=== PATIENT | female | born 1965 | race Caucasian/White ===

== ENCOUNTER 2021-09-11 00:36 | Inpatient (IN) | payer BC, OTHER ==
[~2021-09-11] VITALS: Ht 160 cm; Wt 42.3 kg
[2021-09-11] MEDS ORDERED: NF-ACI30T PO (01:00)
[2021-09-11] MEDS ORDERED: ALPR0.25 PO (01:00)
[2021-09-11] MEDS ORDERED: PANTOPRAZOLE 40 MG (PROTONIX) VIAL IV ONE (01:15)
[2021-09-11] MEDS ORDERED: ONDANSETRON 4 MG/2 ML (SDV) Z0FRAN IVP ONE (01:15)
[2021-09-11] MEDS ORDERED: fentaNYL INJ 100 MCG/2 ML AMP IVP ONE ×3 (01:15→04:30)
[2021-09-11] MEDS ORDERED: FAMOTIDINE 20MG/2ML IV (PEPCID) IVP ONE (01:15)
[2021-09-11 01:43] LABS: OCCULT BLOOD,GASTRIC FLUID POSITIVE (NEGATIVE)
[2021-09-11 01:44] LABS: BASOPHILS # (AUTO) 0.1 10^3/uL (0.0-0.1); BASOPHILS % (AUTO) 0 % (0-10); HEMATOCRIT 42 % (35-52); HEMOGLOBIN 13.5 g/dL (11.5-16.0); LYMPHOCYTES % (AUTO) 4 % (12-44); MEAN CORPUSCULAR HEMOGLOBIN 30 pg (25-34); MEAN CORPUSCULAR HGB CONC 33 g/dL (32-36); MEAN CORPUSCULAR VOLUME 92 fL (80-99); MEAN PLATELET VOLUME 11.2 fL (9.0-12.2); MONOCYTES % (AUTO) 6 % (0-12); PLATELET COUNT 344 10^3/uL (130-400); WHITE BLOOD COUNT 28.6 10^3/uL (4.3-11.0)
[2021-09-11 01:56] LABS: INR 0.9 (0.8-1.4); PROTHROMBIN TIME PATIENT 12.6 SEC (12.2-14.7)
[2021-09-11 01:58] LABS: ALBUMIN 4.6 GM/DL (3.2-4.5); CHLORIDE 103 MMOL/L (98-107); POTASSIUM 3.1 MMOL/L (3.6-5.0); SODIUM 144 MMOL/L (135-145)
[2021-09-11 02:00] LABS: CALCIUM 9.9 MG/DL (8.5-10.1)
[2021-09-11 02:01] LABS: GLUCOSE 192 MG/DL (70-105); TOTAL PROTEIN 7.7 GM/DL (6.4-8.2)
[2021-09-11 02:02] LABS: BILIRUBIN,TOTAL 0.4 MG/DL (0.1-1.0); CARBON DIOXIDE 24 MMOL/L (21-32)
[2021-09-11 02:04] LABS: ALKALINE PHOSPHATASE 100 U/L (40-136); CREATININE SERUM 0.79 MG/DL (0.60-1.30); GFR ESTIMATED 88
[2021-09-11 02:05] LABS: BUN/CREATININE RATIO 35
[2021-09-11 02:07] LABS: ALANINE AMINOTRANSFERASE 16 U/L (0-55)
[2021-09-11 02:08] LABS: LIPASE 19 U/L (8-78)
[2021-09-11 02:13] LABS: EOSINOPHILS % (AUTO) 0 % (0-10); NEUTROPHILS % (AUTO) 89 % (42-75)
[2021-09-11 02:14] LABS: LYMPHOCYTES # (AUTO) 1.3 10^3/uL (1.0-4.0); MONOCYTES # (AUTO) 1.6 10^3/uL (0.0-1.0); NEUTROPHILS # (AUTO) 25.3 10^3/uL (1.8-7.8)
[2021-09-11 02:15] LABS: ATYPICAL LYMPHOCYTES 5 %; BAND NEUTROPHILS 0 %; BASOPHILS % (MANUAL) 0 %; EOSINOPHILS % (MANUAL) 0 %; LYMPHOCYTES % (MANUAL) 5 %; MONOCYTES % (MANUAL) 3 %; NEUTROPHILS % (MANUAL) 87 %; POLYCHROMASIA SLIGHT
[2021-09-11 02:16] LABS: TOXIC GRANULATION/VACUOLAZATIO 1+
[2021-09-11 02:33] LABS: CLARITY,URINE CLEAR; COLOR,URINE YELLOW; GLUCOSE, URINE (UA) NEGATIVE (NEGATIVE); KETONES,URINE 1+ (NEGATIVE); LEUKOCYTE ESTERASE ,URINE NEGATIVE (NEGATIVE); NITRITE,URINE NEGATIVE (NEGATIVE); PROTEIN,URINE 1+ (NEGATIVE)
[2021-09-11 02:40] LABS: BILIRUBIN,URINE 1+ (NEGATIVE)
[2021-09-11 02:41] LABS: BACTERIA,URINE TRACE /HPF
[2021-09-11] MEDS: LACTATED RINGERS 1,000 ML IV SCH ×4 (02:59→23:00)
[2021-09-11] MEDS ORDERED: PROMETHAZINE INJ 25 MG/ML (PHENERGAN) AMP IVP ONE (03:00)
[2021-09-11] MEDS ORDERED: CATHETER FLUSH 10 ML SYR IV PRN (03:30)
[2021-09-11] MEDS ORDERED: HOLD METFORMIN - RECEIVED CONTRAST 20 ML VIAL IV SCH (03:30)
[2021-09-11] MEDS ORDERED: IOHEXOL 350 MG/ML 100 ML (OMNIPAQUE 350) VIAL IV ONE (03:30)
[2021-09-11] MEDS ORDERED: NS 100 ML (IVPB) BAG IV ONE (03:30)
[2021-09-11] MEDS ORDERED: PIPERACILLIN SODIUM/TAZOBACTAM 4.5 GM in NS (IVPB) 100 ML IV ONE (04:15)
--- NOTE | 2021-09-11 04:25 | ED Abdominal Pain ---
General Chief Complaint: Abdominal/GI Problems Stated Complaint: ABD PAIN Nursing Triage Note: c/o abdominal pain x1 day worse since 1800. vomitted x1 Source of Information: Patient Exam Limitations: No Limitations History of Present Illness Date Seen by Provider: Sep 11, 2021 Time Seen by Provider: 11:30 Initial Comments This 56-year-old woman presents to the emergency room with primary complaint of upper abdominal pain and hematemesis. She reports worsening problems with acid reflux over the past 2 months. Then over the past 2 days she had intensifying pain and started vomiting. She vomited at least 500 mL of bloody emesis while in the ER. She reports a prior history of perforated gastric ulcer requiring emergent surgery. She takes AcipHex daily to try to prevent this problem. She denies any fevers, cough, or shortness of breath. She denies any history of hepatitis or esophageal varices. She denies any alcohol consumption. Allergies and Home Medications Allergies Coded Allergies: Influenza Virus Vaccines (Verified Allergy, Unknown, 09/11/21) Patient Home Medication List Home Medication List Reviewed: Yes Alprazolam (Xanax) 0.25 Mg Tablet, Unknown Dose PO, (Reported) Entered as Reported by: DEREK PEREZ on 09/11/2199 Last Action: New Order Rabeprazole Sodium (Aciphex) 20 Mg Tablet.dr, Unknown Dose PO, (Reported) Entered as Reported by: DEREK PEREZ on 09/11/2199 Last Action: New Order Review of Systems Review of Systems Constitutional: no symptoms reported EENTM: No Symptoms Reported Respiratory: No Symptoms Reported Cardiovascular: No Symptoms Reported Gastrointestinal: See HPI Genitourinary: No Symptoms Reported Musculoskeletal: no symptoms reported Skin: no symptoms reported Psychiatric/Neurological: No Symptoms Reported Endocrine: No Symptoms Reported Past [id number]-[id number]-[id number] Hx Patient Social History Tobacco Use?: Yes Tobacco type used: Cigarettes Use of E-Cig and/or Vaping dev: No Substance use?: No Alcohol Use?: No Pt feels they are or have been: No Immunizations Up To Date Influenza Vaccine Up-to-Date: No; Not Current First/Initial COVID19 Vaccinat: 10/30 COVID19 Vaccine Life Specialist: j&j Past Medical History Surgery/Hospitalization HX: gastric ulcer, cholecystectomy, lumpectomy, anxiety, gerd, Surgeries: Yes Abdominal (Emergent repair of perforated gastric ulcer), Breast (Benign lumpectomy left breast), Gallbladder Respiratory: No Cardiac: No Neurological: No : No Reproductive Disorders: No Genitourinary: No Gastrointestinal: Yes Ulcer (Rupture) Musculoskeletal: No Endocrine: No HEENT: No Cancer: No Did You Recieve Any Treatments: No Psychosocial: No Integumentary: No Physical Exam Vital Signs Vital Signs - First Documented 09/11/21 00:52 Temp 36.4 Pulse 104 Resp 20 B/P (MAP) 144/122 (129) Pulse Ox 97 O2 Delivery Room Air Capillary Refill : Less Than 3 Seconds Height/Weight/BMI Height: '" Weight: lbs. oz. 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, no motor/sensory deficits, alert, oriented x 3, other (Mildly anxious) Skin: normal color, warm/dry Focused Exam Lactate Level 09/11/21 01:52: Lactic Acid Level 1.46 Lactic Acid Level Laboratory Tests Test 09/11/21 01:52 Lactic Acid Level 1.46 MMOL/L (0.50-2.00) Progress/Results/Core Measures Results/Orders Lab Results Laboratory Tests Test 09/11/21 01:20 09/11/21 01:26 09/11/21 01:52 09/11/21 02:25 Range/Units Gastric Fluid Occult Blood POSITIVE H NEGATIVE White Blood Count 28.6 H 4.3-11.0 10^3/uL Red Blood Count 4.51 3.80-5.11 10^6/uL Hemoglobin 13.5 11.5-16.0 g/dL Hematocrit 42 35-52 % Mean Corpuscular Volume 92 80-99 fL Mean Corpuscular Hemoglobin 30 25-34 pg Mean Corpuscular Hemoglobin Concent 33 32-36 g/dL Red Cell Distribution Width 13.5 10.0-14.5 % Platelet Count 344 130-400 10^3/uL Mean Platelet Volume 11.2 9.0-12.2 fL Immature Granulocyte % (Auto) 1 % Neutrophils (%) (Auto) 89 H 42-75 % Lymphocytes (%) (Auto) 4 L 12-44 % Monocytes (%) (Auto) 6 0-12 % Eosinophils (%) (Auto) 0 0-10 % Basophils (%) (Auto) 0 0-10 % Neutrophils # (Auto) 25.3 H 1.8-7.8 10^3/uL Lymphocytes # (Auto) 1.3 1.0-4.0 10^3/uL Monocytes # (Auto) 1.6 H 0.0-1.0 10^3/uL Eosinophils # (Auto) 0.0 0.0-0.3 10^3/uL Basophils # (Auto) 0.1 0.0-0.1 10^3/uL Immature Granulocyte # (Auto) 0.2 H 0.0-0.1 10^3/uL Neutrophils % (Manual) 87 % Lymphocytes % (Manual) 5 % Monocytes % (Manual) 3 % Eosinophils % (Manual) 0 % Basophils % (Manual) 0 % Band Neutrophils 0 % Atypical Lymphocytes 5 % Toxic Granulation 1+ Polychromasia SLIGHT Prothrombin Time 12.6 12.2-14.7 SEC INR Comment 0.9 0.8-1.4 Activated Partial Thromboplast Time 30 24-35 SEC Sodium Level 144 135-145 MMOL/L Potassium Level 3.1 L 3.6-5.0 MMOL/L Chloride Level 103 98-107 MMOL/L Carbon Dioxide Level 24 21-32 MMOL/L Anion Gap 17 H 5-14 MMOL/L Blood Urea Nitrogen 28 H 7-18 MG/DL Creatinine 0.79 0.60-1.30 MG/DL Estimat Glomerular Filtration Rate 88 BUN/Creatinine Ratio 35 Glucose Level 192 H 70-105 MG/DL Calcium Level 9.9 8.5-10.1 MG/DL Corrected Calcium 8.5-10.1 MG/DL Total Bilirubin 0.4 0.1-1.0 MG/DL Aspartate Amino Transf (AST/SGOT) 19 5-34 U/L Alanine Aminotransferase (ALT/SGPT) 16 0-55 U/L Alkaline Phosphatase 100 40-136 U/L Total Protein 7.7 6.4-8.2 GM/DL Albumin 4.6 H 3.2-4.5 GM/DL Lipase 19 8-78 U/L Lactic Acid Level 1.46 0.50-2.00 MMOL/L Urine Color YELLOW Urine Clarity CLEAR Urine pH 6.0 5-9 Urine Specific Ber[place] >=1.030 1.016-1.022 Urine Protein 1+ H NEGATIVE Urine Glucose (UA) NEGATIVE NEGATIVE Urine Ketones 1+ H NEGATIVE Urine Nitrite NEGATIVE NEGATIVE Urine Bilirubin 1+ H NEGATIVE Urine Urobilinogen 0.2 < = 1.0 MG/DL Urine Leukocyte Esterase NEGATIVE NEGATIVE Urine RBC (Auto) 1+ H NEGATIVE Urine RBC 2-5 H /HPF Urine WBC 2-5 /HPF Urine Squamous Epithelial Cells 2-5 /HPF Urine Crystals NONE /LPF Urine Bacteria TRACE /HPF Urine Casts NONE /LPF Urine Mucus NEGATIVE /LPF Urine Culture Indicated NO My Orders Orders - HIMA GOMES MD Cbc With Automated Diff (09/11/21 01:13) Comprehensive Metabolic Panel (09/11/21 01:13) Lipase (09/11/21 01:13) Protime With Inr (09/11/21 01:13) Partial Thromboplastin Time (09/11/21 01:13) Ua Culture If Indicated (09/11/21 01:13) Ondansetron Injection (Zofran Injectio (09/11/21 01:15) Pantoprazole Injection (Protonix Injecti (09/11/21 01:15) Famotidine Injection (Pepcid Injection) (09/11/21 01:15) Fentanyl Inj (Sublimaze Injection) (09/11/21 01:15) Red Cells Leukocytes Reduced (09/11/21 01:15) Type And Screen (09/11/21 01:15) Occult Blood,Gastric Fluid (09/11/21 01:19) Manual Differential (09/11/21 01:26) Fentanyl Inj (Sublimaze Injection) (09/11/21 02:45) Lactated Ringers (Lr 1000 Ml Iv Solution (09/11/21 02:45) Ct Abdomen/Pelvis W (09/11/21 02:50) Promethazine Injection (Phenergan Injec (09/11/21 03:00) Iohexol Injection (Omnipaque 350 Mg/Ml 1 (09/11/21 03:30) Received Contrast (Hold Metformin- Contr (09/11/21 03:30) Sodium Chloride Flush (Catheter Flush Sy (09/11/21 03:30) Ns (Ivpb) (Sodium Chloride 0.9% Ivpb Bag (09/11/21 03:30) Blood Culture (09/11/21 04:12) Chest 1 View, Ap/Pa Only (09/11/21 04:12) Vital Signs Adult Sepsis Patie Q15M (09/11/21 04:12) Remove Rings In Anticipation O (09/11/21 04:12) Lactic Acid Analyzer (09/11/21 04:12) Piperacillin Sodium/Tazobactam (Zosyn Vi (09/11/21 04:15) Ng Tube Insert & Assessment (09/11/21 04:12) Medications Given in ED Current Medications Medications Dose Ordered Sig/Keyon Route Start Time Stop Time Status Last Admin Dose Admin Famotidine 20 mg ONCE ONCE IVP 09/11/21 01:15 09/11/21 01:16 DC 09/11/21 01:32 20 MG Fentanyl Citrate 50 mcg ONCE ONCE IVP 09/11/21 01:15 09/11/21 01:16 DC 09/11/21 01:33 50 MCG Fentanyl Citrate 50 mcg ONCE ONCE IVP 09/11/21 02:45 09/11/21 02:46 DC 09/11/21 02:59 50 MCG Iohexol 100 ml ONCE ONCE IV 09/11/21 03:30 09/11/21 03:31 DC 09/11/21 03:36 70 ML Ondansetron HCl 8 mg ONCE ONCE IVP 09/11/21 01:15 09/11/21 01:16 DC 09/11/21 01:32 8 MG Pantoprazole 80 mg ONCE ONCE IV 09/11/21 01:15 09/11/21 01:16 DC 09/11/21 01:32 80 MG Piperacillin Sod/ Tazobactam Sod 4.5 gm/Sodium Chloride 100 ml @ 200 mls/hr ONCE ONCE IV 09/11/21 04:15 09/11/21 04:44 DC 09/11/21 04:29 200 MLS/HR Promethazine HCl 12.5 mg ONCE ONCE IVP 09/11/21 03:00 09/11/21 03:01 DC 09/11/21 02:58 12.5 MG Sodium Chloride 10 ml NEEDED PRN IV 09/11/21 03:30 09/11/21 06:47 DC 09/11/21 03:36 10 ML Sodium Chloride 100 ml ONCE ONCE IV 09/11/21 03:30 09/11/21 03:31 DC 09/11/21 03:36 80 ML Vital Signs/I&O 09/11/21 00:52 Temp 36.4 Pulse 104 Resp 20 B/P (MAP) 144/122 (129) Pulse Ox 97 O2 Delivery Room Air Blood Pressure Mean: 129 Progress Progress Note : Progress Note Patient was treated with high-dose PPI, Zofran, and Phenergan. Opioids were used for pain control. Gastric Hemoccult confirmed blood in the emesis. CT scan was obtained and revealed free air near the distal stomach or early duodenum suggesting perforation of a viscus. No abscess was identified. Diagnostic Imaging Diagonstic Imaging: CT Plain Films/CT/US/NM/MRI: abdomen, pelvis Comments NAME: LACEY ZAIDI [facility] REC#: [id number] PT STATUS: ADM IN : 1965 PHYSICIAN: HIMA GOMES MD ADMIT DATE: 09/11/21 Draft Date of Exam:09/11/21 CT ABDOMEN/PELVIS W PROCEDURE: CT abdomen and pelvis with contrast. TECHNIQUE: Multiple contiguous axial images were obtained through the abdomen and pelvis after administration of intravenous contrast. Auto Exposure Controls were utilized during the CT exam to meet ALARA standards for radiation dose reduction. All CT scans use one or more of the following dose optimizing techniques: automated exposure control, MA and/or KvP adjustment based on patient size and exam type or iterative reconstruction. INDICATION: 56-year-old female presents with abdominal pain, hematemesis. There is a previous history of cholecystectomy as well as repair of gastric ulcer. COMPARISONS: None FINDINGS: Lung bases show some minimal subpleural dependent atelectatic infiltrates but no consolidations. There is no effusion or pneumothorax. Cardiac contour is normal. Liver shows uniform attenuation. There is no intraparenchymal mass. There is intrahepatic ductal dilatation as well as dilated common duct including the pancreatic portion of the common duct. The duct, however, appears to be patent to the ampulla. An ampullary stenosis or stricture versus small axillary mass cannot be excluded. Spleen and GE junction are normal. Stomach is moderately distended with food stuff. There is inflammatory process in the antrum and pylorus with some possible pneumatosis. A pyloric mass is also within differential. Duodenal sweep is grossly normal. Pancreas shows sharp margins. There is prominence of the pancreatic duct, once again possibly due to obstruction near the ampulla. Adrenals are normal. Kidneys appear normal in size, position, and contour. There is symmetrical perfusion and excretion of contrast. Both ureters are seen intermittently through their course and appear grossly unremarkable. Partially filled bladder is also normal. Nonopacified loops of small bowel are normal. Appendix is unremarkable. Large bowel contains some scattered diverticula. There is some minimal mucosal thickening near the cecum. Overall, the large bowel is mostly decompressed. There is no free air or free fluid. There is a small pocket of gas in the rectus sheath along the mid pelvis. Bone windows show degenerative changes in the lumbosacral spine with vacuum disc at L4-L5 and L5-S1. Visualized vasculature shows normal caliber of the aorta, iliac and femoral arteries. There is some nonaneurysmal calcifications. There is normal origin of the visceral arteries. IMPRESSION: 1. Gastric outlet obstruction secondary to mucosal thickening with possible antral mass. There is also mucosal thickening in the pylorus with possible pneumatosis versus a perforated ulcer. 2. There is marked intrahepatic ductal dilatation as well as dilatation of the pancreatic duct. This is felt to be due to obstruction near the ampulla. There is surgically absent gallbladder. 3. No evidence of obstructive uropathy or appendicitis. 4. Suspected distal esophagitis. Additional nonemergent findings as described above. Agree with [facility] report. Dictated on workstation # [id number] Dict: 09/11/21 0616 Trans: 09/11/21 0626 GHULAM [id number] Interpreted by: TERRA VALENCIA MD Departure Communication (Admissions) Time/Spoke to Admitting Phy: 02:45 Dr. Salvador Time/Spoke to Consulting Phy: 02:40 Dr. Layton Impression Primary Impression: Perforated ulcer Additional Impressions: Hematemesis Qualified Codes: K92.0 - Hematemesis Abdominal pain Qualified Codes: R10.10 - Upper abdominal pain, unspecified Disposition: ADMITTED INPATIENT Condition: Stable Admissions Decision to Admit Reason: Admit from ER (General) Decision to Admit/Date: Sep 11, 2021 Time/Decision to Admit Time: 02:45 Departure-Patient Inst. Referrals: EVELYN VO DO (PCP/Family) Primary Care Physician HIMA GOMES MD Sep 11, 2021 04:25
[2021-09-11] MEDS ORDERED: LORazepam INJ 2 MG/ML (ATIVAN) VIAL IVP ONE (04:30)
[2021-09-11 05:20] VITALS: BP 104/72
[2021-09-11] MEDS ORDERED: LACTATED RINGERS 1,000 ML IV SCH (05:30)
--- NOTE | 2021-09-11 05:56 | Diagnostic Imaging Report ---
INDICATION: NG tube placement. TECHNIQUE: Single view chest 5:16 AM. CORRELATION STUDY: None FINDINGS: The heart size, mediastinal configuration and pulmonary vascularity are within normal limits. The lungs are clear with no consolidating infiltrate. There is no significant effusion or pneumothorax. Gastric tube tip in the mid to lower left abdomen likely positioned within the mid to distal body of the stomach. Air-fluid level within the stomach. Contrast material within the genitourinary system. IMPRESSION: 1. Gastric tube tip likely in the mid to distal body of stomach. Dictated by: Dictated on workstation # [id number]
--- NOTE | 2021-09-11 06:27 | Diagnostic Imaging Report ---
PROCEDURE: CT abdomen and pelvis with contrast. TECHNIQUE: Multiple contiguous axial images were obtained through the abdomen and pelvis after administration of intravenous contrast. Auto Exposure Controls were utilized during the CT exam to meet ALARA standards for radiation dose reduction. All CT scans use one or more of the following dose optimizing techniques: automated exposure control, MA and/or KvP adjustment based on patient size and exam type or iterative reconstruction. INDICATION: 56-year-old female presents with abdominal pain, hematemesis. There is a previous history of cholecystectomy as well as repair of gastric ulcer. COMPARISONS: None FINDINGS: Lung bases show some minimal subpleural dependent atelectatic infiltrates but no consolidations. There is no effusion or pneumothorax. Cardiac contour is normal. Liver shows uniform attenuation. There is no intraparenchymal mass. There is intrahepatic ductal dilatation as well as dilated common duct including the pancreatic portion of the common duct. The duct, however, appears to be patent to the ampulla. An ampullary stenosis or stricture versus small axillary mass cannot be excluded. Spleen and GE junction are normal. Stomach is moderately distended with food stuff. There is inflammatory process in the antrum and pylorus with some possible pneumatosis. A pyloric mass is also within differential. Duodenal sweep is grossly normal. Pancreas shows sharp margins. There is prominence of the pancreatic duct, once again possibly due to obstruction near the ampulla. Adrenals are normal. Kidneys appear normal in size, position, and contour. There is symmetrical perfusion and excretion of contrast. Both ureters are seen intermittently through their course and appear grossly unremarkable. Partially filled bladder is also normal. Nonopacified loops of small bowel are normal. Appendix is unremarkable. Large bowel contains some scattered diverticula. There is some minimal mucosal thickening near the cecum. Overall, the large bowel is mostly decompressed. There is no free air or free fluid. There is a small pocket of gas in the rectus sheath along the mid pelvis. Bone windows show degenerative changes in the lumbosacral spine with vacuum disc at L4-L5 and L5-S1. Visualized vasculature shows normal caliber of the aorta, iliac and femoral arteries. There is some nonaneurysmal calcifications. There is normal origin of the visceral arteries. IMPRESSION: 1. Gastric outlet obstruction secondary to mucosal thickening with possible antral mass. There is also mucosal thickening in the pylorus with possible pneumatosis versus a perforated ulcer. 2. There is marked intrahepatic ductal dilatation as well as dilatation of the pancreatic duct. This is felt to be due to obstruction near the ampulla. There is surgically absent gallbladder. 3. No evidence of obstructive uropathy or appendicitis. 4. Suspected distal esophagitis. Additional nonemergent findings as described above. Agree with [facility] report. Dictated by: Dictated on workstation # [id number]
[2021-09-11] MEDS ORDERED: CATHETER FLUSH 10 ML SYR IVP PRN (07:00)
[2021-09-11 07:10] LABS: BASOPHILS % (AUTO) 0 % (0-10); HEMOGLOBIN 11.1 g/dL (11.5-16.0)
[2021-09-11 07:12] LABS: EOSINOPHILS # (AUTO) 1.8 10^3/uL (0.0-0.3); EOSINOPHILS % (AUTO) 9 % (0-10); HEMATOCRIT 35 % (35-52); LYMPHOCYTES # (AUTO) 0.9 10^3/uL (1.0-4.0); LYMPHOCYTES % (AUTO) 5 % (12-44); MEAN CORPUSCULAR HEMOGLOBIN 30 pg (25-34); MEAN CORPUSCULAR HGB CONC 32 g/dL (32-36); MEAN CORPUSCULAR VOLUME 93 fL (80-99); MEAN PLATELET VOLUME 11.5 fL (9.0-12.2); MONOCYTES % (AUTO) 5 % (0-12); NEUTROPHILS # (AUTO) 16.5 10^3/uL (1.8-7.8); NEUTROPHILS % (AUTO) 81 % (42-75); PLATELET COUNT 235 10^3/uL (130-400); WHITE BLOOD COUNT 20.4 10^3/uL (4.3-11.0)
[2021-09-11 07:45] LABS: ALBUMIN 3.6 GM/DL (3.2-4.5); BILIRUBIN,TOTAL 0.5 MG/DL (0.1-1.0); CALCIUM 8.7 MG/DL (8.5-10.1); CREATININE SERUM 0.7 MG/DL (0.60-1.30); POTASSIUM 3.2 MMOL/L (3.6-5.0)
[2021-09-11 08:04] VITALS: BP 121/59
[2021-09-11] MEDS: PANTOPRAZOLE 40 MG (PROTONIX) VIAL IV SCH ×2 (08:44→20:43)
[2021-09-11] MEDS: POTASSIUM CL 10MEQ/50ML IVPB 50 ML IV SCH ×4 (09:13→11:53)
[2021-09-11 11:44] VITALS: BP 120/61
--- NOTE | 2021-09-11 12:31 | History & Physical ---
GENE AGEE III MED STUDENT 09/11/21 1231: HPI History of Present Illness: Pt is a 56yo female w/ pmhx of GERD, gastric ulceration w/ hx of perforation requiring surgery about 10 years ago who presented to the ED on 09/10 w/ significant abdominal pain and hematemesis. Notes that symptoms started to develop 09/08 into 09/09. Rates the pain as 10/10, however is unable to describe the quality of pain. does note that it is the exact sensation she had previously when she had a perforated gastric ulcer. W/ the abdominal pain, endorses chills, subjective fever, SOB, CP (localized to epigastric area), and fatigue. 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 Had success w/ zantac in the past, however has not found any medication that has helped as much since this was discontinued. Source: patient Exam Limitations: no limitations Date seen by provider: Sep 11, 2021 Time Seen by Provider: 11:10 Attending Physician Sánchez Lux MD PCP Edmund Salvador V DO Consult Date of Admission Sep 11, 2021 at 04:16 Home Medications Home Medications Reviewed patient Home Medication Reconciliation performed by pharmacy medication reconciliations extractions technician and/or nursing. Patients Allergies have been reviewed. Allergies Coded Allergies: Influenza Virus Vaccines (Verified Allergy, Unknown, 09/11/21) BZO-[id number]-Gtcdtl Hx Patient Social History Smoking Status: Current Someday Smoker Recent Hopitalizations: No Alcohol Use?: No Tobacco type used: Cigarettes Have you traveled recently?: No Immunizations Up To Date Influenza Vaccine Up-to-Date: No; Not Current First/Initial COVID19 Vaccinat: 10/30 COVID19 Vaccine Glazing Superintendent: j&j Past Medical History GERD, gastric ulcer Family Medical History Significant Family History: No Pertinent Family Hx Review of Systems ([facility]) Constitutional: chills, diaphoresis, fever, malaise, weakness, weight loss EENTM: no symptoms reported Respiratory: short of breath; No wheezing Cardiovascular: chest pain (but localizes to epigastric area) Gastrointestinal: abdominal pain (epigastric ), hematemesis (describes dark brown vomitus that has been present for a while, not frequent occurance ), nausea, vomiting Genitourinary: no symptoms reported : No Musculoskeletal: no symptoms reported Skin: no symptoms reported Psychiatric/Neurological: No Symptoms Reported Reviewed Test Results Reviewed Test Results Lab 09/11/21 09/11/21 09/11/21 09/11/21 00:52 04:54 05:20 05:59 Temp 36.4 36.4 37.6 Pulse 104 92 85 Resp 20 18 18 B/P (MAP) 144/122 (129) 96/72 104/72 (83) Pulse Ox 97 99 96 O2 Delivery Room Air Room Air Room Air Room Air 09/11/21 09/11/21 09/11/21 08:00 08:04 11:44 Temp 37.4 37.8 Pulse 87 85 Resp 16 18 B/P (MAP) 121/59 (79) 120/61 (80) Pulse Ox 97 96 O2 Delivery Room Air Room Air Room Air Laboratory Tests Test 09/11/21 01:20 09/11/21 01:26 09/11/21 01:52 09/11/21 02:25 Range/Units Gastric Fluid Occult Blood POSITIVE H NEGATIVE White Blood Count 28.6 H 4.3-11.0 10^3/uL Red Blood Count 4.51 3.80-5.11 10^6/uL Hemoglobin 13.5 11.5-16.0 g/dL Hematocrit 42 35-52 % Mean Corpuscular Volume 92 80-99 fL Mean Corpuscular Hemoglobin 30 25-34 pg Mean Corpuscular Hemoglobin Concent 33 32-36 g/dL Red Cell Distribution Width 13.5 10.0-14.5 % Platelet Count 344 130-400 10^3/uL Mean Platelet Volume 11.2 9.0-12.2 fL Immature Granulocyte % (Auto) 1 % Neutrophils (%) (Auto) 89 H 42-75 % Lymphocytes (%) (Auto) 4 L 12-44 % Monocytes (%) (Auto) 6 0-12 % Eosinophils (%) (Auto) 0 0-10 % Basophils (%) (Auto) 0 0-10 % Neutrophils # (Auto) 25.3 H 1.8-7.8 10^3/uL Lymphocytes # (Auto) 1.3 1.0-4.0 10^3/uL Monocytes # (Auto) 1.6 H 0.0-1.0 10^3/uL Eosinophils # (Auto) 0.0 0.0-0.3 10^3/uL Basophils # (Auto) 0.1 0.0-0.1 10^3/uL Immature Granulocyte # (Auto) 0.2 H 0.0-0.1 10^3/uL Neutrophils % (Manual) 87 % Lymphocytes % (Manual) 5 % Monocytes % (Manual) 3 % Eosinophils % (Manual) 0 % Basophils % (Manual) 0 % Band Neutrophils 0 % Atypical Lymphocytes 5 % Toxic Granulation 1+ Polychromasia SLIGHT Prothrombin Time 12.6 12.2-14.7 SEC INR Comment 0.9 0.8-1.4 Activated Partial Thromboplast Time 30 24-35 SEC Sodium Level 144 135-145 MMOL/L Potassium Level 3.1 L 3.6-5.0 MMOL/L Chloride Level 103 98-107 MMOL/L Carbon Dioxide Level 24 21-32 MMOL/L Anion Gap 17 H 5-14 MMOL/L Blood Urea Nitrogen 28 H 7-18 MG/DL Creatinine 0.79 0.60-1.30 MG/DL Estimat Glomerular Filtration Rate 88 BUN/Creatinine Ratio 35 Glucose Level 192 H 70-105 MG/DL Calcium Level 9.9 8.5-10.1 MG/DL Corrected Calcium 8.5-10.1 MG/DL Total Bilirubin 0.4 0.1-1.0 MG/DL Aspartate Amino Transf (AST/SGOT) 19 5-34 U/L Alanine Aminotransferase (ALT/SGPT) 16 0-55 U/L Alkaline Phosphatase 100 40-136 U/L Total Protein 7.7 6.4-8.2 GM/DL Albumin 4.6 H 3.2-4.5 GM/DL Lipase 19 8-78 U/L Lactic Acid Level 1.46 0.50-2.00 MMOL/L Urine Color YELLOW Urine Clarity CLEAR Urine pH 6.0 5-9 Urine Specific [place] >=1.030 1.016-1.022 Urine Protein 1+ H NEGATIVE Urine Glucose (UA) NEGATIVE NEGATIVE Urine Ketones 1+ H NEGATIVE Urine Nitrite NEGATIVE NEGATIVE Urine Bilirubin 1+ H NEGATIVE Urine Urobilinogen 0.2 < = 1.0 MG/DL Urine Leukocyte Esterase NEGATIVE NEGATIVE Urine RBC (Auto) 1+ H NEGATIVE Urine RBC 2-5 H /HPF Urine WBC 2-5 /HPF Urine Squamous Epithelial Cells 2-5 /HPF Urine Crystals NONE /LPF Urine Bacteria TRACE /HPF Urine Casts NONE /LPF Urine Mucus NEGATIVE /LPF Urine Culture Indicated NO Test 09/11/21 06:50 09/11/21 07:00 Range/Units White Blood Count 20.4 H 4.3-11.0 10^3/uL Red Blood Count 3.71 L 3.80-5.11 10^6/uL Hemoglobin 11.1 L 11.5-16.0 g/dL Hematocrit 35 35-52 % Mean Corpuscular Volume 93 80-99 fL Mean Corpuscular Hemoglobin 30 25-34 pg Mean Corpuscular Hemoglobin Concent 32 32-36 g/dL Red Cell Distribution Width 13.6 10.0-14.5 % Platelet Count 235 130-400 10^3/uL Mean Platelet Volume 11.5 9.0-12.2 fL Immature Granulocyte % (Auto) 1 % Neutrophils (%) (Auto) 81 H 42-75 % Lymphocytes (%) (Auto) 5 L 12-44 % Monocytes (%) (Auto) 5 0-12 % Eosinophils (%) (Auto) 9 0-10 % Basophils (%) (Auto) 0 0-10 % Neutrophils # (Auto) 16.5 H 1.8-7.8 10^3/uL Lymphocytes # (Auto) 0.9 L 1.0-4.0 10^3/uL Monocytes # (Auto) 1.0 0.0-1.0 10^3/uL Eosinophils # (Auto) 1.8 H 0.0-0.3 10^3/uL Basophils # (Auto) 0.0 0.0-0.1 10^3/uL Immature Granulocyte # (Auto) 0.2 H 0.0-0.1 10^3/uL Sodium Level 143 135-145 MMOL/L Potassium Level 3.2 L 3.6-5.0 MMOL/L Chloride Level 105 98-107 MMOL/L Carbon Dioxide Level 25 21-32 MMOL/L Anion Gap 13 5-14 MMOL/L Blood Urea Nitrogen 23 H 7-18 MG/DL Creatinine 0.70 0.60-1.30 MG/DL Estimat Glomerular Filtration Rate 101 BUN/Creatinine Ratio 33 Glucose Level 124 H 70-105 MG/DL Calcium Level 8.7 8.5-10.1 MG/DL Corrected Calcium 9.0 8.5-10.1 MG/DL Total Bilirubin 0.5 0.1-1.0 MG/DL Aspartate Amino Transf (AST/SGOT) 16 5-34 U/L Alanine Aminotransferase (ALT/SGPT) 10 0-55 U/L Alkaline Phosphatase 83 40-136 U/L Total Protein 6.0 L 6.4-8.2 GM/DL Albumin 3.6 3.2-4.5 GM/DL Radiology CT ABDOMEN/PELVIS W PROCEDURE: CT abdomen and pelvis with contrast. TECHNIQUE: Multiple contiguous axial images were obtained through the abdomen and pelvis after administration of intravenous contrast. Auto Exposure Controls were utilized during the CT exam to meet ALARA standards for radiation dose reduction. All CT scans use one or more of the following dose optimizing techniques: automated exposure control, MA and/or KvP adjustment based on patient size and exam type or iterative reconstruction. INDICATION: 56-year-old female presents with abdominal pain, hematemesis. There is a previous history of cholecystectomy as well as repair of gastric ulcer. COMPARISONS: None FINDINGS: Lung bases show some minimal subpleural dependent atelectatic infiltrates but no consolidations. There is no effusion or pneumothorax. Cardiac contour is normal. Liver shows uniform attenuation. There is no intraparenchymal mass. There is intrahepatic ductal dilatation as well as dilated common duct including the pancreatic portion of the common duct. The duct, however, appears to be patent to the ampulla. An ampullary stenosis or stricture versus small axillary mass cannot be excluded. Spleen and GE junction are normal. Stomach is moderately distended with food stuff. There is inflammatory process in the antrum and pylorus with some possible pneumatosis. A pyloric mass is also within differential. Duodenal sweep is grossly normal. Pancreas shows sharp margins. There is prominence of the pancreatic duct, once again possibly due to obstruction near the ampulla. Adrenals are normal. Kidneys appear normal in size, position, and contour. There is symmetrical perfusion and excretion of contrast. Both ureters are seen intermittently through their course and appear grossly unremarkable. Partially filled bladder is also normal. Nonopacified loops of small bowel are normal. Appendix is unremarkable. Large bowel contains some scattered diverticula. There is some minimal mucosal thickening near the cecum. Overall, the large bowel is mostly decompressed. There is no free air or free fluid. There is a small pocket of gas in the rectus sheath along the mid pelvis. Bone windows show degenerative changes in the lumbosacral spine with vacuum disc at L4-L5 and L5-S1. Visualized vasculature shows normal caliber of the aorta, iliac and femoral arteries. There is some nonaneurysmal calcifications. There is normal origin of the visceral arteries. IMPRESSION: 1. Gastric outlet obstruction secondary to mucosal thickening with possible antral mass. There is also mucosal thickening in the pylorus with possible pneumatosis versus a perforated ulcer. 2. There is marked intrahepatic ductal dilatation as well as dilatation of the pancreatic duct. This is felt to be due to obstruction near the ampulla. There is surgically absent gallbladder. 3. No evidence of obstructive uropathy or appendicitis. 4. Suspected distal esophagitis. Additional nonemergent findings as described above. Physical Exam-([facility]) Physical Exam Vital Signs VS - Last 72 Hours, by Label 09/11/21 09/11/21 09/11/21 09/11/21 00:52 04:54 05:20 05:59 Temp 36.4 36.4 37.6 Pulse 104 92 85 Resp 20 18 18 B/P (MAP) 144/122 (129) 96/72 104/72 (83) Pulse Ox 97 99 96 O2 Delivery Room Air Room Air Room Air Room Air 09/11/21 09/11/21 09/11/21 08:00 08:04 11:44 Temp 37.4 37.8 Pulse 87 85 Resp 16 18 B/P (MAP) 121/59 (79) 120/61 (80) Pulse Ox 97 96 O2 Delivery Room Air Room Air Room Air Capillary Refill : Less Than 3 Seconds General Appearance: moderate distress (appears to be uncomfortable from pain while laying in bed ), cachetic, thin Eyes: Bilateral Eye Normal Inspection, Bilateral Eye PERRL, Bilateral Eye EOMI HEENT: PERRL/EOMI, pharynx normal Neck: non-tender, full range of motion, supple, normal inspection; No carotid bruit Respiratory: chest non-tender, lungs clear, normal breath sounds (though poor inspiratory efford), no respiratory distress, no accessory muscle use Cardiovascular: normal peripheral pulses, regular rate, rhythm, no edema, systolic murmur (best heard over left lower sternum) Peripheral Pulses: 2+ Radial Pulses (R), 2+ Radial Pulses (L) Gastrointestinal: normal bowel sounds, soft (no obvious guarding or rigidity appreciated, though exam was after pain medication was given ), tenderness (pt reports epigastric tenderness) Rectal: deferred Back: normal inspection, no CVA tenderness Extremities: normal range of motion, non-tender, normal inspection, normal capillary refill Neurologic/Psychiatric: 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 Leukocytosis of 28.6 on admission, decreased to 20.4 on 09/11. Started on IV zosyn in the ED. Surgery consulted for surgical management of perforation. Continue IV abx given perforated ulcer. LR maintenance fluid at 125ml/hr (2) Abdominal pain Status: Acute Assessment & Plan: Known hx of GERD w/ new acute gastric ulcer perforation. pain management w/ morphine 4mg q2h prn for pain. zofran ordered for nausea Qualifiers: Qualified Codes: R10.10 - Upper abdominal pain, unspecified (3) GERD (gastroesophageal reflux disease) Status: Chronic Assessment & Plan: Hx of GERD. Pt notes that she has not found any medication to help her symptoms since zantac was discontinued. on protonix 40mg BID while admitted. Qualifiers: Qualified Codes: K21.00 - Gastro-esophageal reflux disease with esophagitis, without bleeding (4) Abnormal CT of the abdomen Status: Acute Assessment & Plan: Gastric outlet obstruction secondary to mucosal thickening with possible antral mass. Marked intrahepatic ductal dilatation as well as dilatation of the pancreatic duct. This is felt to be due to obstruction near the ampulla. There is surgically absent gallbladder. Uncertain etiology for the G.O.O and ductal dilation. Will need further investigation following surgical intervention for perforated gastric ulcer (5) Hypokalemia Status: Acute Assessment & Plan: K of 3.2 on 09/11. Replaced w/ IV SÁNCHEZ ZHANG MD 09/11/21 1710: Home Medications Allergies Coded Allergies: Influenza Virus Vaccines (Verified Allergy, Unknown, 09/11/21) Physical Exam-([facility]) Physical Exam General Appearance: no apparent distress, cachetic Respiratory: lungs clear, normal breath sounds, no respiratory distress Cardiovascular: regular rate, rhythm, systolic murmur (loudest at LLSB, no radiation to carotids or back) Gastrointestinal: normal bowel sounds, soft (no obvious guarding or rigidity appreciated, though exam was after pain medication was given ), tenderness (mild epigastric ttp), other (NG in place with dark drainage) Neurologic/Psychiatric: alert Skin: warm/dry Assessment/Plan Assessment/Plan (1) Abdominal pain Status: Acute Qualifiers: Qualified Codes: R10.10 - Upper abdominal pain, unspecified (2) Hypokalemia Status: Acute (3) GERD (gastroesophageal reflux disease) Status: Chronic Qualifiers: Qualified Codes: K21.00 - Gastro-esophageal reflux disease with esophagitis, without bleeding (4) Perforated ulcer Status: Acute (5) Abnormal CT of the abdomen Status: Acute (6) Hematuria Status: Acute Assessment & Plan: No renal abnormalities noted on CT, discussed need for further evaluation likely after hospitalization. Qualifiers: Qualified Codes: R31.21 - Asymptomatic microscopic hematuria Supervisory-Addendum Brief Verification & Attestation Participated in pt care: history, MDM, physical Personally performed: exam, history, MDM Care discussed with: Medical Student Procedures: n/a I personally saw and examined patient and repeated the history and did my own physical exam (see my exam for my physical exam findings). I directed the plan of care as documented by the medical student. GENE AGEE III MED STUDENT Sep 11, 2021 12:31 SÁNCHEZ LUX MD Sep 11, 2021 17:10
[2021-09-11] MEDS: ONDANSETRON 4 MG/2 ML (SDV) Z0FRAN IV PRN (13:04)
[2021-09-11] MEDS: morphine INJ 4 MG/ML 1 ML (VIAL/SYRINGE) IV PRN ×3 (13:04→20:43)
[2021-09-11] MEDS ORDERED: CHLORASEPTIC SPRAY 177 ML LIQUID MC PRN (15:15)
[2021-09-11] MEDS ORDERED: CALC-687 PO (15:37)
[2021-09-11] MEDS ORDERED: VITA100T8 PO (15:37)
[2021-09-11] MEDS ORDERED: ALPR1TAB7 PO (15:37)
[2021-09-11] MEDS ORDERED: POTA-51 PO (15:37)
[2021-09-11] MEDS ORDERED: MULT-1136 PO (15:37)
[2021-09-11] MEDS ORDERED: ZINC220T3 PO (15:37)
[2021-09-11] MEDS ORDERED: CHOL-34 PO (15:37)
[2021-09-11] MEDS ORDERED: VITA1TAB17 PO (15:37)
[2021-09-11] MEDS ORDERED: MAGN400T39 PO (15:37)
[2021-09-11 15:41] VITALS: BP 120/56
[2021-09-11] MEDS: PIPERACILLIN SODIUM/TAZOBACTAM 4.5 GM in NS (IVPB) 100 ML IV SCH ×2 (16:04→23:00)
--- NOTE | 2021-09-11 19:12 | CONSULTATION REPORT ---
DATE OF SERVICE: 09/11/2021 ATTENDING PRIMARY CARE PHYSICIAN: Dr. Edmund Salvador. ADMITTING PHYSICIAN: Layla Salvador MD HISTORY OF PRESENT ILLNESS: The patient is a 56-year-old female who presented to the Emergency Department with gastroesophageal reflux disease type of symptoms as well as nausea and vomiting as well as what appeared to be red blood. She states that she has had issues with peptic ulcer disease in the past. She is originally from [facility] and states that she underwent an EGD and she was found to have an ulceration; however, she is unsure where the location was. She was on Aciphex as well as a H2 antagonist; however, she states that the H2 antagonist that she was normally taking was discontinued and she was only on Aciphex. She does smoke. She does not report drinking any alcohol and only a small amount of caffeinated beverages. A CT scan was performed, which showed a significantly dilated stomach as well as thickening within the duodenum, likely consistent with a chronically obstructive peptic ulcer disease. This is the likely source of bleeding as well. At this time, her hemoglobin is stable and she is also clinically stable. We will recommend conservative management in this scenario with bowel rest, IV PPI acid reducers as well as placement of a PICC line and total parenteral nutrition. In several days, we will then proceed with an upper GI contrast study to document no obstruction and passage of contents through the duodenum and if this is the case, we will start clear liquids and slowly advance as tolerated. She will also need to have an upper endoscopy performed as well as biopsies to evaluate the ulceration. 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 basis as well as Carafate when she is taking p.o. medications. PAST MEDICAL HISTORY: Peptic ulcer disease, gastroesophageal reflux disease, anxiety. PAST SURGICAL HISTORY: Left breast biopsy, which was benign, laparoscopic cholecystectomy. ALLERGIES: INFLUENZA VACCINE. MEDICATIONS: Alprazolam 1 mg b.i.d., Aciphex 20 mg daily. SOCIAL HISTORY: Positive for smoke, 35 pack years. Negative alcohol. FAMILY HISTORY: Noncontributory. VITAL SIGNS: Temperature 37.6, blood pressure 120/56, pulse 86, respirations 20, pulse ox 92% on room air. REVIEW OF SYSTEMS: This is a thin-appearing female, currently in no acute distress. She has a nasogastric tube in and has not had any episodes of nausea and vomiting since placement. Her abdomen is also soft and nondistended. She reports that she has been having some bowel function as well. She does not report any red blood per rectum nor any dark tarry stools. No fever or chills. She does state she has lost some weight in the past few years. All other review of systems negative. PHYSICAL EXAMINATION: CHEST: Distant breath sounds and scattered wheezes bilaterally. HEART: Regular, no murmurs. EXTREMITIES: No lower extremity edema, negative Homans sign. HEENT: No scleral icterus. NECK: No cervical lymphadenopathy. ABDOMEN: Soft, nondistended. There is pain in the epigastric region upon deep palpation. No peritoneal signs. SKIN: Warm, dry. LABORATORY DATA: WBC 20.4, hemoglobin 11.1, hematocrit 35, platelets 235. BUN 23, creatinine 0.70. ASSESSMENT AND PLAN: A 56-year-old female with an obstructive peptic ulcer disease and gastric outlet obstruction as well as hematemesis. Due to this, she is also chronically dehydrated, hypokalemic as well as hypomagnesemic. We will recommend conservative therapy with IV hydration, correction of electrolytes, placement of a PICC line and starting total parenteral nutrition. We will also continue with IV PPI acid reducers on a b.i.d. basis and in several days to proceed with upper GI contrast study and if there is no obstruction or leak identified, we will remove the nasogastric tube and start clear liquids and slowly advance as tolerated from that point. We will also proceed with an EGD to evaluate her upper gastrointestinal anatomy as well as biopsies as appropriate on this admission as well. She will also need to be on b.i.d. PPI acid reducers lifelong as well. Job ID: [id number] DocumentID: [id number] Dictated Date: 09/11/2021 17:50:52 Solution Design Engineer Date: 09/11/2021 19:12:21 Dictated By: JOCELYN DÍAZ MD
[2021-09-11 19:26] VITALS: BP 115/66
[2021-09-11] MEDS: ALPRAZolam 1 MG (XANAX) TAB PO PRN (20:42)
[2021-09-12] VITALS: BP 108/63
[2021-09-12] MEDS: morphine INJ 4 MG/ML 1 ML (VIAL/SYRINGE) IV PRN ×4 (00:07→11:35)
[2021-09-12 04:00] VITALS: BP_SYST 110; BP_SYST 130; BP_DIAS 59; BP_DIAS 63
[2021-09-12 05:43] LABS: HEMATOCRIT 30 % (35-52); HEMOGLOBIN 9.4 g/dL (11.5-16.0); MEAN CORPUSCULAR HEMOGLOBIN 30 pg (25-34); MEAN CORPUSCULAR HGB CONC 31 g/dL (32-36); MEAN CORPUSCULAR VOLUME 96 fL (80-99); MEAN PLATELET VOLUME 11.3 fL (9.0-12.2); PLATELET COUNT 192 10^3/uL (130-400); WHITE BLOOD COUNT 10.9 10^3/uL (4.3-11.0)
[2021-09-12 05:53] LABS: ALBUMIN 3.3 GM/DL (3.2-4.5); POTASSIUM 3.3 MMOL/L (3.6-5.0)
[2021-09-12 05:55] LABS: CALCIUM 8.8 MG/DL (8.5-10.1)
[2021-09-12 05:56] LABS: TOTAL PROTEIN 5.8 GM/DL (6.4-8.2)
[2021-09-12 05:57] LABS: BILIRUBIN,TOTAL 0.5 MG/DL (0.1-1.0)
[2021-09-12 05:59] LABS: CREATININE SERUM 0.64 MG/DL (0.60-1.30)
[2021-09-12] MEDS: PIPERACILLIN SODIUM/TAZOBACTAM 4.5 GM in NS (IVPB) 100 ML IV SCH ×3 (07:37→23:08)
[2021-09-12] MEDS: PANTOPRAZOLE 40 MG (PROTONIX) VIAL IV SCH ×2 (07:37→20:13)
[2021-09-12] MEDS: LACTATED RINGERS 1,000 ML IV SCH ×2 (07:38→18:09)
[2021-09-12] MEDS: ONDANSETRON 4 MG/2 ML (SDV) Z0FRAN IV PRN (07:41)
[2021-09-12] MEDS: POTASSIUM CL 10MEQ/50ML IVPB 50 ML IV SCH ×3 (07:56→09:52)
[2021-09-12] MEDS: ALPRAZolam 1 MG (XANAX) TAB PO PRN ×2 (08:10→19:02)
[2021-09-12 08:46] VITALS: BP 117/58
--- NOTE | 2021-09-12 11:42 | Progress Note ---
Subjective Date Seen by a Provider: Sep 12, 2021 Time Seen by a Provider: 10:00 Subjective/Events-last exam doing ok. complains of anxiety. no abd pain. no fever/chills. copious NGT output. Focused Exam Lactate Level 09/11/21 01:52: Lactic Acid Level 1.46 Objective Exam Vital Signs Date Time Temp Pulse Resp B/P (MAP) Pulse Ox O2 Delivery O2 Flow Rate FiO2 09/12/21 09:05 OxyMask 5.00 09/12/21 08:46 37.6 92 18 117/58 (77) 99 OxyMask 5.00 09/12/21 08:00 99 OxyMask 5.00 09/12/21 07:00 97 09/12/21 04:00 37.6 92 17 110/59 (76) 91 Room Air 09/12/21 01:00 84 09/12/21 00:00 37.5 88 20 108/63 (78) 93 Room Air 09/11/21 19:49 Room Air 09/11/21 19:26 37.7 94 18 115/66 (82) 91 Room Air 09/11/21 19:00 87 09/11/21 15:41 37.6 86 20 120/56 (77) 92 Room Air 09/11/21 15:35 Room Air 09/11/21 11:44 37.8 85 18 120/61 (80) 96 Room Air I & O 09/12/21 07:00 Intake Total 1300 ml Output Total 900 ml Balance 400 ml Capillary Refill : Less Than 3 Seconds General Appearance: No Apparent Distress HEENT: PERRL/EOMI Neck: Full Range of Motion Respiratory: Chest Non Tender, Wheezing Cardiovascular: Regular Rate, Rhythm Gastrointestinal: normal bowel sounds, soft, tenderness Extremity: Normal Capillary Refill Neurologic/Psychiatric: Alert, Oriented x3 Skin: Normal Color Lymphatic: No Adenopathy Results Lab Laboratory Tests 09/12/21 05:23: White Blood Count 10.9, Red Blood Count 3.15L, Hemoglobin 9.4L, Hematocrit 30L, Mean Corpuscular Volume 96, Mean Corpuscular Hemoglobin 30, Mean Corpuscular Hemoglobin Concent 31L, Red Cell Distribution Width 14.2, Platelet Count 192, Me an Platelet Volume 11.3, Sodium Level 141, Potassium Level 3.3L, Chloride Level 103, Carbon Dioxide Level 28, Anion Gap 10, Blood Urea Nitrogen 22H, Creatinine 0.64, Estimat Glomerular Filtration Rate 104, BUN/Creatinine Ratio 34, Glucose Level 91, Calcium Level 8.8, Corrected Calcium 9.4, Total Bilirubin 0.5, Aspartate Amino Transf (AST/SGOT) 188H, Alanine Aminotransferase (ALT/SGPT) 171H , Alkaline Phosphatase 232H, Total Protein 5.8L, Albumin 3.3 Assessment/Plan Assessment/Plan Assess & Plan/Chief Complaint gastric outlet obstruction secondary PUD. IV PPI. NGT decompression. PICC and TPN. upper GI contrast study sometime next week. ok for ice chips. JOCELYN DÍAZ MD Sep 12, 2021 11:42
[2021-09-12] MEDS ORDERED: LORazepam INJ 2 MG/ML (ATIVAN) VIAL IVP PRN (11:45)
[2021-09-12] MEDS ORDERED: TPN IV SCH (11:45)
[2021-09-12 12:23] VITALS: BP 105/56
[2021-09-12 12:24] LABS: INR 1.1 (0.8-1.4); PROTHROMBIN TIME PATIENT 14.3 SEC (12.2-14.7)
[2021-09-12 12:28] LABS: PHOSPHORUS 2.7 MG/DL (2.3-4.7)
[2021-09-12 12:30] LABS: MAGNESIUM 1.8 MG/DL (1.6-2.4)
--- NOTE | 2021-09-12 12:56 | Progress Note ---
GENE AGEE III MED STUDENT 09/12/21 1256: Subjective Subjective/Events-last exam On exam this AM pt notes that she still has some nausea and abdominal pain though has not vomited since she has had the NG tube placed. Had questions about her anti-acid medication while admitted and this was explained and pt had better understanding of current regiment. Denies any CP, SOB, dysuria, fevers. Does endorse a few chills last night and had a low grade fever that has since resolved. Did note that she watched her O2 sat slowly drop from high 90s to high 80s from 09/11 to 09/12 but denies ever having a SOB feeling associated w/ this. Review of Systems General: Chills; No Night Sweats, No Fatigue, No Malaise HEENT: No Head Aches, No Visual Changes, No Eye Pain, No Ear Pain, No Dysphasia, No Sinus Congestion, No Post Nasal Drip, No Sore Throat, No Other Pulmonary: No Dyspnea, No Cough, No Pleuritic Chest Pain, No Other Cardiovascular: No: Chest Pain, Palpitations, Orthopnea, Paroxysmal Noc. Dyspnea, Edema, Lt Headedness, Other Gastrointestinal: Nausea, Abdominal Pain; No: Vomiting, Diarrhea, Constipation Genitourinary: No Dysuria, No Frequency, No Hematuria Musculoskeletal: No: other, neck pain, shoulder pain, arm pain, back pain, hand pain, leg pain, foot pain Neurological: No: Weakness, Numbness, Incoordination, Change in speech, Confusion, Seizures, Other Focused Exam Lactate Level 09/11/21 01:52: Lactic Acid Level 1.46 Objective Exam Last Set of Vital Signs Vital Signs Date Time Temp Pulse Resp B/P (MAP) Pulse Ox O2 Delivery O2 Flow Rate FiO2 09/12/21 12:23 37.7 82 20 105/56 (72) 97 OxyMask 5.00 Capillary Refill : Less Than 3 Seconds I&O Intake and Output 09/12/21 00:00 Intake Total 2400 ml Output Total 200 ml Balance 2200 ml Intake Oral 0 ml IV Total 2400 ml Output Gastric Drainage Total 200 ml # Voids 3 General: Alert, Oriented X3, Cooperative, Mild Distress (nauseas on exam, though no active vomiting. Does endorse belly pain ) HEENT: Atraumatic, PERRLA, EOMI Neck: Supple, No JVD Lungs: Clear to Auscultation, Normal Air Movement Heart: Regular Rate, Normal S1, Normal S2, Other (holosystolic murmur appreciated on exam again, best noted at lower left sternum ) Abdomen: Normal Bowel Sounds, Soft, Other (tender throughout abdomen, though more prominent in epigastric area. no guarding or rigidity on exam ) Extremities: No Clubbing, No Cyanosis, No Edema, Normal Pulses Skin: No Significant Lesion Neuro: Normal Speech, Cranial Nerves 3-12 NL Psych/Mental Status: Mental Status NL, Mood NL Results/Procedures Lab Laboratory Tests 09/12/21 05:23: White Blood Count 10.9, Red Blood Count 3.15L, Hemoglobin 9.4L, Hematocrit 30L, Mean Corpuscular Volume 96, Mean Corpuscular Hemoglobin 30, Mean Corpuscular H emoglobin Concent 31L, Red Cell Distribution Width 14.2, Platelet Count 192, Mean Platelet Volume 11.3, Prothrombin Time 14.3, INR Comment 1.1, Sodium Level 141, Potassium Level 3.3L, Chloride Level 103, Carbon Dioxide Level 28, Anion Gap 10, Blood Urea Nitrogen 22H, Creatinine 0.64, Estimat Glomerular Filtration Rate 104, BUN/Creatinine Ratio 34, Glucose Level 91, Calcium Level 8.8, Corrected Calcium 9.4, Phosphorus Level 2.7, Magnesium Level 1.8, Total B ilirubin 0.5, Aspartate Amino Transf (AST/SGOT) 188H, Alanine Aminotransferase (ALT/SGPT) 171H, Alkaline Phosphatase 232H, Total Protein 5.8L, Albumin 3.3, Triglycerides Level 66 Laboratory Tests Test 09/12/21 05:23 Range/Units White Blood Count 10.9 4.3-11.0 10^3/uL Red Blood Count 3.15 L 3.80-5.11 10^6/uL Hemoglobin 9.4 L 11.5-16.0 g/dL Hematocrit 30 L 35-52 % Mean Corpuscular Volume 96 80-99 fL Mean Corpuscular Hemoglobin 30 25-34 pg Mean Corpuscular Hemoglobin Concent 31 L 32-36 g/dL Red Cell Distribution Width 14.2 10.0-14.5 % Platelet Count 192 130-400 10^3/uL Mean Platelet Volume 11.3 9.0-12.2 fL Prothrombin Time 14.3 12.2-14.7 SEC INR Comment 1.1 0.8-1.4 Sodium Level 141 135-145 MMOL/L Potassium Level 3.3 L 3.6-5.0 MMOL/L Chloride Level 103 98-107 MMOL/L Carbon Dioxide Level 28 21-32 MMOL/L Anion Gap 10 5-14 MMOL/L Blood Urea Nitrogen 22 H 7-18 MG/DL Creatinine 0.64 0.60-1.30 MG/DL Estimat Glomerular Filtration Rate 104 BUN/Creatinine Ratio 34 Glucose Level 91 70-105 MG/DL Calcium Level 8.8 8.5-10.1 MG/DL Corrected Calcium 9.4 8.5-10.1 MG/DL Phosphorus Level 2.7 2.3-4.7 MG/DL Magnesium Level 1.8 1.6-2.4 MG/DL Total Bilirubin 0.5 0.1-1.0 MG/DL Aspartate Amino Transf (AST/SGOT) 188 H 5-34 U/L Alanine Aminotransferase (ALT/SGPT) 171 H 0-55 U/L Alkaline Phosphatase 232 H 40-136 U/L Total Protein 5.8 L 6.4-8.2 GM/DL Albumin 3.3 3.2-4.5 GM/DL Triglycerides Level 66 <150 MG/DL Radiology CT ABDOMEN/PELVIS W PROCEDURE: CT abdomen and pelvis with contrast. TECHNIQUE: Multiple contiguous axial images were obtained through the abdomen and pelvis after administration of intravenous contrast. Auto Exposure Controls were utilized during the CT exam to meet ALARA standards for radiation dose reduction. All CT scans use one or more of the following dose optimizing techniques: automated exposure control, MA and/or KvP adjustment based on patient size and exam type or iterative reconstruction. INDICATION: 56-year-old female presents with abdominal pain, hematemesis. There is a previous history of cholecystectomy as well as repair of gastric ulcer. COMPARISONS: None FINDINGS: Lung bases show some minimal subpleural dependent atelectatic infiltrates but no consolidations. There is no effusion or pneumothorax. Cardiac contour is normal. Liver shows uniform attenuation. There is no intraparenchymal mass. There is intrahepatic ductal dilatation as well as dilated common duct including the pancreatic portion of the common duct. The duct, however, appears to be patent to the ampulla. An ampullary stenosis or stricture versus small axillary mass cannot be excluded. Spleen and GE junction are normal. Stomach is moderately distended with food stuff. There is inflammatory process in the antrum and pylorus with some possible pneumatosis. A pyloric mass is also within differential. Duodenal sweep is grossly normal. Pancreas shows sharp margins. There is prominence of the pancreatic duct, once again possibly due to obstruction near the ampulla. Adrenals are normal. Kidneys appear normal in size, position, and contour. There is symmetrical perfusion and excretion of contrast. Both ureters are seen intermittently through their course and appear grossly unremarkable. Partially filled bladder is also normal. Nonopacified loops of small bowel are normal. Appendix is unremarkable. Large bowel contains some scattered diverticula. There is some minimal mucosal thickening near the cecum. Overall, the large bowel is mostly decompressed. There is no free air or free fluid. There is a small pocket of gas in the rectus sheath along the mid pelvis. Bone windows show degenerative changes in the lumbosacral spine with vacuum disc at L4-L5 and L5-S1. Visualized vasculature shows normal caliber of the aorta, iliac and femoral arteries. There is some nonaneurysmal calcifications. There is normal origin of the visceral arteries. IMPRESSION: 1. Gastric outlet obstruction secondary to mucosal thickening with possible antral mass. There is also mucosal thickening in the pylorus with possible pneumatosis versus a perforated ulcer. 2. There is marked intrahepatic ductal dilatation as well as dilatation of the pancreatic duct. This is felt to be due to obstruction near the ampulla. There is surgically absent gallbladder. 3. No evidence of obstructive uropathy or appendicitis. 4. Suspected distal esophagitis. Additional nonemergent findings as described above. Assessment/Plan Assessment/Plan (1) Abdominal pain Status: Acute Assessment & Plan: Abdominal pain likely related to gastric outlet obstruction by gastric ulcer seen on CT. Surgery consulted for recommendations, see below. 3 - reported abdominal pain and nausea on exam this AM, has scheduled pain medications and anti-nausea meds scheduled that helped on 09/11. Will continue these. Qualifiers: Qualified Codes: R10.10 - Upper abdominal pain, unspecified (2) Perforated ulcer Status: Acute Assessment & Plan: mucosal thickening in the pylorus with possible pneumatosis versus a perforated ulcer seen on admission CT scan. Leukocytosis of 28.6 on admission, decreased to 20.4 on 3/3. Started on IV zosyn in the ED. Surgery consulted for surgical management of perforation. Continue IV abx given perforated ulcer. LR maintenance fluid at 125ml/hr 3/ - Evaluated by surgery 2/[address] findings. Following recs per surgery: "recommend conservative therapy with IV hydration, correction of electrolytes, placement of a PICC line and starting total parenteral nutrition. We will also continue with IV PPI acid reducers on a b.i.d. basis and in several days to proceed with upper GI contrast study and if there is no obstruction or leak identified, we will remove the nasogastric tube and start clear liquids and slowly advance as tolerated from that point. We will also proceed with an EGD to evaluate her upper gastrointestinal anatomy as well as biopsies as appropriate on this admission as well" (3) GERD (gastroesophageal reflux disease) Status: Chronic Assessment & Plan: Current regiment includes protonix 40mg BID. May consider adding H2 redd in addition to the PPI while admitted for better acid suppression and hopeful improvement in symptom Qualifiers: Qualified Codes: K21.00 - Gastro-esophageal reflux disease with esophagitis, without bleeding (4) Elevated transaminase level Status: Acute Assessment & Plan: AST/ALT/Alk phos elevated on 09/12 to 188/171/232. No elevation in total bilirubin level. Uncertain if related to inflammation and gastric outlet obstruction. Will continue to monitor for signs of worsening abdominal pain/back pain (5) Hypokalemia Status: Acute Assessment & Plan: Replaced as needed (6) Abnormal CT of the abdomen Status: Acute (7) Hematuria Status: Acute Assessment & Plan: No renal abnormalities noted on CT, discussed need for further evaluation likely after hospitalization. Qualifiers: Qualified Codes: R31.21 - Asymptomatic microscopic hematuria SÁNCHEZ LUX MD 09/12/21 1521: Objective Exam General: Alert, Mild Distress (nauseas on exam, though no active vomiting. Does endorse belly pain ) Lungs: Clear to Auscultation, Normal Air Movement Heart: Regular Rate, Other (3/6 systolic murmur) Abdomen: Normal Bowel Sounds, Soft, Other (mild epigastric ttp) Extremities: No Edema Neuro: Normal Speech Psych/Mental Status: Mood NL Supervisory-Addendum Brief Verification & Attestation Participated in pt care: history, MDM, physical Personally performed: exam, history, MDM Care discussed with: Medical Student Procedures: n/a I personally saw and examined patient and repeated the history. See my exam for my physical exam findings, I did not repeat the entire exam documented by the medical student. I directed the plan of care as documented by the medical student. Given not going to surgery immediately, will start enoxaparin for DVT prophylaxis. Echo pending. GENE AGEE III MED STUDENT Sep 12, 2021 12:56 SÁNCHEZ LUX MD Sep 12, 2021 15:21
[2021-09-12] MEDS ORDERED: POTASSIUM CHLORIDE INJ 20 MEQ in D5 NS 1000 ML IV SOLUTION 1,000 ML IV SCH (14:15)
[2021-09-12] MEDS ORDERED: D5 NS W/KCL 20 MEQ/L 1,000 ML IV SCH (14:45)
[2021-09-12] MEDS: fentaNYL INJ 100 MCG/2 ML AMP IVP PRN ×3 (15:20→23:08)
[2021-09-12 15:45] VITALS: BP 104/57
[2021-09-12] MEDS ORDERED: SODIUM CHLORIDE IV SCH ×11 (17:00)
[2021-09-12] MEDS ORDERED: [UNRECOGNIZED DRUG - OTHER] IV SCH ×11 (17:00)
[2021-09-12] MEDS ORDERED: SODIUM ACETATE IV SCH ×11 (17:00)
[2021-09-12 19:48] VITALS: BP 113/53
[2021-09-13] VITALS: BP 124/67
[2021-09-13] MEDS: ONDANSETRON 4 MG/2 ML (SDV) Z0FRAN IV PRN ×2 (03:16→08:12)
[2021-09-13] MEDS: fentaNYL INJ 100 MCG/2 ML AMP IVP PRN ×2 (03:16→09:40)
[2021-09-13 03:52] VITALS: BP 116/62
[2021-09-13] MEDS: LACTATED RINGERS 1,000 ML IV SCH ×2 (03:55→16:51)
[2021-09-13 05:53] LABS: ALBUMIN 2.8 GM/DL (3.2-4.5); POTASSIUM 3.2 MMOL/L (3.6-5.0)
[2021-09-13 05:55] LABS: CALCIUM 8.3 MG/DL (8.5-10.1)
--- NOTE | 2021-09-13 05:55 | Progress Note - Hospitalist ---
Subjective HPI/CC On Admission Date Seen by Provider: Sep 13, 2021 Time Seen by Provider: 11:00 Subjective/Events-last exam Patient about the same today NG tube in place TPN infusing Pain is about the same Benzodiazepine required due to anxiety Checked meds and labs Review of Systems General: Fatigue, Malaise Gastrointestinal: Nausea, Vomiting, Abdominal Pain Focused Exam Lactate Level Objective Exam Vital Signs Vital Signs Date Time Temp Pulse Resp B/P (MAP) Pulse Ox O2 Delivery O2 Flow Rate FiO2 09/14/21 04:06 36.8 68 18 150/95 (113) 99 OxyMask 5.00 Capillary Refill : Less Than 3 Seconds General Appearance: Anxious, Chronically ill, Thin Respiratory: Lungs Clear, Normal Breath Sounds Cardiovascular: Regular Rate, Rhythm Neurologic/Psychiatric: Alert, Oriented x3 Results/Procedures Lab Laboratory Tests 09/14/21 04:42 Patient resulted labs reviewed. Assessment/Plan Assessment and Plan Assess & Plan/Chief Complaint Assessment: Perforated ulcer Elevated liver enzymes Bowel obstruction TPN infusion Hypokalemia Anxiety Plan: TPN Pain control Supportive care TESSA GRANADO DO Sep 13, 2021 05:55
[2021-09-13 05:58] LABS: BILIRUBIN,TOTAL 0.2 MG/DL (0.1-1.0)
[2021-09-13 05:59] LABS: PHOSPHORUS 2.2 MG/DL (2.3-4.7)
[2021-09-13 06:00] LABS: CREATININE SERUM 0.55 MG/DL (0.60-1.30)
[2021-09-13 06:02] LABS: MAGNESIUM 1.8 MG/DL (1.6-2.4)
[2021-09-13] MEDS: PIPERACILLIN SODIUM/TAZOBACTAM 4.5 GM in NS (IVPB) 100 ML IV SCH ×3 (06:41→22:26)
[2021-09-13 07:43] VITALS: BP 130/64
[2021-09-13] MEDS: morphine INJ 4 MG/ML 1 ML (VIAL/SYRINGE) IV PRN ×3 (08:12→19:27)
[2021-09-13] MEDS: PANTOPRAZOLE 40 MG (PROTONIX) VIAL IV SCH ×2 (08:12→20:50)
--- NOTE | 2021-09-13 08:36 | Progress Note - Surgery ---
LION PALMER 09/13/21 0836: Subjective Date Seen by a Provider: Sep 13, 2021 Time Seen by a Provider: 07:31 Subjective/Events-last exam Pt is complaining of abdominal pain and discomfort - receiving pain medication while in the room. Pain to palpation of abdomen, NGT in place production of 600ml dark brown gastric fluid. Pt is stable and on TPN and bowel rest for anticipated upper GI study early next week to investigate source of gastric outlet obstruction. Review of Systems General: No Chills, No Night Sweats; Fatigue; No Appetite HEENT: No Head Aches, No Visual Changes, No Eye Pain, No Sinus Congestion Pulmonary: No Dyspnea, No Cough, No Pleuritic Chest Pain Cardiovascular: No: Chest Pain, Palpitations, Edema Gastrointestinal: Abdominal Pain; No: Nausea, Vomiting, Diarrhea, Melena, Hematochezia Genitourinary: No Dysuria, No Frequency, No Incontinence Musculoskeletal: No: neck pain, shoulder pain, back pain Neurological: No: Weakness, Numbness, Incoordination Focused Exam Lactate Level 09/11/21 01:52: Lactic Acid Level 1.46 Objective Exam Vital Signs Date Time Temp Pulse Resp B/P (MAP) Pulse Ox O2 Delivery O2 Flow Rate FiO2 09/13/21 07:43 37.3 71 16 130/64 (86) 100 OxyMask 5.00 09/13/21 07:00 78 09/13/21 03:52 37.1 85 20 116/62 (80) 95 OxyMask 5.00 09/13/21 01:00 80 09/13/21 00:00 36.9 74 18 124/67 (86) 99 OxyMask 5.00 09/12/21 19:48 37.8 75 16 113/53 (73) 95 Room Air 09/12/21 19:48 Room Air 5.00 09/12/21 19:00 81 09/12/21 15:45 37.8 77 18 104/57 (73) 99 OxyMask 5.00 09/12/21 12:55 85 09/12/21 12:23 37.7 82 20 105/56 (72) 97 OxyMask 5.00 09/12/21 09:05 OxyMask 5.00 09/12/21 08:46 37.6 92 18 117/58 (77) 99 OxyMask 5.00 I & O 09/13/21 07:00 Intake Total 1410 ml Output Total 250 ml Balance 1160 ml Capillary Refill : Less Than 3 Seconds General Appearance: No Apparent Distress, Thin HEENT: PERRL/EOMI, Other (NGT in place) Neck: Full Range of Motion, Non Tender, Supple Respiratory: Chest Non Tender, Lungs Clear, Normal Breath Sounds, No Accessory Muscle Use, No Respiratory Distress, Wheezing Cardiovascular: Regular Rate, Rhythm, No Edema, No Gallop, No Murmur, Normal Peripheral Pulses Peripheral Pulses: 2+ Radial Pulses (R), 2+ Radial Pulses (L) Gastrointestinal: normal bowel sounds, soft, tenderness (Epigastric area) Extremity: Normal Capillary Refill, Normal Range of Motion, Non Tender, No Calf Tenderness, No Pedal Edema Neurologic/Psychiatric: Alert, Oriented x3, No Motor/Sensory Deficits, Normal Mood/Affect Skin: Normal Color, Warm/Dry Lymphatic: No Adenopathy (cervical or axillary) Results Lab Laboratory Tests 09/12/21 13:50: Glucometer 84 09/12/21 18:17: Glucometer 117H 09/13/21 00:02: Glucometer 120H 09/13/21 05:38: Sodium Level 140, Potassium Level 3.2L, Chloride Level 102, Carbon Dioxide Level 29, Anion Gap 9, Blood Urea Nitrogen 22H, Creatinine 0.55L, Estimat Glomerular Filtration Rate 108, BUN/Creatinine Ratio 40, Glucose Level 138H, Calcium Level 8.3L, Corrected Calcium 9.3, Phosphorus Level 2.2L, Magnesium Level 1.8, Total Bilirubin 0.2, Aspartate Amino Transf (AST/SGOT) 47H, Alanine Aminotransferase (ALT/SGPT) 85H, Alkaline Phosphatase 170H, Total Protein 5.0L, Albumin 2.8L Microbiology 09/11/21 Blood Culture - Preliminary, Resulted No growth Assessment/Plan Assessment/Plan Assessment/Plan gastric outlet obstruction secondary PUD. Plan - IV PPI. Continue NGT decompression. Contineu PICC and TPN. upper GI contrast study planned for next week. ok for ice chips. ROHIT ULLOA DO 09/13/21 1328: Subjective Time Seen by a Provider: 11:11 Subjective/Events-last exam Pt seen and examined, she stated she thought the pain in her abdomen was a little bit more today. NGT in place still with lots of output. She states she has had Ulcer surgery before, she thinks 2011. Has GI doctor who has done EGD's and thinks last one was 5-6 years ago. Does not think she has ever been told she has Gastroparesis. Review of Systems General: No Chills, No Night Sweats; Fatigue Pulmonary: No Dyspnea, No Cough Cardiovascular: No: Chest Pain, Palpitations Gastrointestinal: Abdominal Pain; No: Nausea, Vomiting Objective Exam General Appearance: No Apparent Distress, Thin HEENT: PERRL/EOMI Respiratory: Lungs Clear, No Accessory Muscle Use, No Respiratory Distress, Wheezing Cardiovascular: Regular Rate, Rhythm, No Murmur Gastrointestinal: soft, no organomegaly, tenderness (Epigastric area) Neurologic/Psychiatric: Alert, Oriented x3 Assessment/Plan Assessment/Plan Assessment/Plan Gastroparesis vs gastric outlet obstruction - possibly secondary PUD Gastric Perforation Dilated Biliary ducts - Bilirubin normal 0.5 Plan - IV PPI, Continue NGT decompression, Contineu PICC and TPN, upper GI contrast study planned for next week, ok for ice chips. Repeat labs in AM to make sure perforation is not worsening. I reviewed the CT films myself; the stomach is huge and I explained this to pt. She asked why no one ever told her this before.....I told her maybe no one ever saw it before. Supervisory-Addendum Brief Verification & Attestation Participated in pt care: history, MDM, physical Personally performed: exam, history, MDM, supervision of care Care discussed with: Medical Student Procedures: n/a Verification and Attestation of Medical Student E/M Service A medical student performed and documented this service. I then reviewed and verified all information documented by the medical student and made modifications to such information, when appropriate. I personally performed a physical exam, medical decision making and then discussed any differences between the notes and made revisions as necessary to create one note. Rohit Ulloa , 09/13/21 , 13:31 LION PALMER Sep 13, 2021 08:36 ROHIT ULLOA DO Sep 13, 2021 13:28
[2021-09-13] MEDS: POTASSIUM PHOSPHATE INJ 6.8 MM in NS (IVPB) 50 ML IV SCH ×3 (09:33→11:19)
[2021-09-13] MEDS: LORazepam INJ 2 MG/ML (ATIVAN) VIAL IVP PRN ×2 (09:39→15:29)
[2021-09-13 12:01] VITALS: BP 112/66
--- NOTE | 2021-09-13 12:26 | Physical Therapy Evaluation ---
PT Evaluation-General Medical Diagnosis Admission Date Sep 11, 2021 at 04:16 Medical Diagnosis: Abdominal pain Onset Date: Oct 06, 2021 Therapy Diagnosis Therapy Diagnosis: Gait deficit, strength deficit Precautions Precautions/Isolations: Fall Prevention, Standard Precautions Referral Physician: Dr. Lamb Reason for Referral: Evaluation/Treatment Social History Home: Single Level Current Living Status: Alone Prior Prior Level of Function SCALE: Activities may be completed with or without assistive devices. 5-Ebnyuisieq-ipwebzq completes the activity by him/herself with no assistance from a helper. 5-Set-up or Clean-up Assistance-helper sets up or cleans up; patient completes activity. Carmichael assists only prior to or following the activity. 4-Supervision or Touching Assistance-helper provides verbal cues and/or touching/steadying and/or contact guard assistance as patient completes activity. Assistance may be provided throughout the activity or intermittently. 3-Partial/Moderate Assistance-helper does LESS THAN HALF the effort. Carmichael lifts, holds or supports trunk or limbs, but provides less than half the effort. 2-Substantial/Maximal Assistance-helper does MORE THAN HALF the effort. Carmichael lifts or holds trunk or limbs and provides more than half the effort. 5-Ohyscqjdm-aqamna does ALL the effort. Patient does none of the effort to complete the activity. Or, the assistance of 2 or more helpers is required for the patient to complete the activity. If activity was not attempted, code reason: 7-Patient Refused. 9-Not Applicable-not attempted and the patient did not perform the activity before the current illness, exacerbation or injury. 10-Not Attempted due to Environmental Limitations-(lack of equipment, weather restraints, etc.). 88-Not Attempted due to Medical Conditions or Safety Concerns. Bed Mobility: 6 Transfers (B,C,W/C): 6 Gait: 6 Stairs: 6 Indoor Mobility (Ambulation): Independent Stairs: Independent Prior Devices Use: None PT Evaluation-Current Subjective Patient lying supine in bed upon PT arrival, agreeable to treatment. Patient rates pain at 7/10 in abdomen currently. Objective Patient Orientation: Person, Place, Time, Situation ROM/Strength ROM Lower Extremities WFLs Strength Lower Extremities 4-/5 bilaterally all planes Sensory Vision: Functional Hearing: Functional Sensation Right Lower Extremit: Intact Sensation Left Lower Extremity: Intact Transfers Roll Left to Right (QC): 4 Sit to Lying (QC): 4 Lying to Sitting/Side of Bed(Q: 4 Sit to Stand (QC): 4 Chair/Mwl-tk-Ecwju Xfer(QC): 4 Gait Does the Patient Walk?: Yes Mode of Locomotion: Walk Anticipated Mode of Locomotion: Walk Walk 10 feet (QC): 4 Walk 50 ft with 2 Turns(QC): 4 Walk 150 ft (QC): 4 Distance: 150 feet Gait Assistive Device: FWW Balance Sitting Static: Good Sitting Dynamic: Good Standing Static: Fair Standing Dynamic: Fair Assessment/Needs Patient tolerated treatment fair. Patient performs all observed bed mobility and transfers with SBA. She ambulates 150 feet with no AD, with CGA and verbal cues for safety, progression, posture, and conservation of energy. Patient ambulates with narrow AGGIE, shortened stride length bilaterally and rounded shoulders with accentuated thoracic kyphosis. Patient in bed per patient request post treatment with all needs met, nursing notified, call light in hand, all needs met. Rehab Potential: Good PT Retirement Goals Pants Closer Goals PT Pants Closer Goals Time Frame: Oct 04, 2021 Roll Left & Right (QC): 6 Sit to Lying (QC): 6 Lying-Sitting on Side/Bed(QC): 6 Sit to Stand (QC): 6 Chair/Dbt-nt-Qvuvv Xfer(QC): 6 Toilet Transfer (QC): 6 Does the Patient Walk: Yes Walk 10 feet (QC): 6 Walk 50ft with 2 Turns (QC): 6 Walk 150 ft (QC): 6 1 Step (curb) (QC): 6 4 Steps (QC): 6 PT Plan Problem List Problem List: Activity Tolerance, Functional Strength, Safety, Balance, Gait, Transfer, Bed Mobility, ROM Treatment/Plan Treatment Plan: Continue Plan of Care Treatment Plan: Bed Mobility, Education, Functional Activity Teresa, Functional Strength, Group Therapy, Gait, Safety, Therapeutic Exercise, Transfers Treatment Duration: Nov 08, 2021 Frequency: 6 times per week Estimated Hrs Per Day: .25 hour per day Patient and/or Family Agrees t: Yes Safety Risks/Education Patient Education: Gait Training, Transfer Techniques Teaching Recipient: Patient Teaching Methods: Demonstration, Discussion Response to Teaching: Verbalize Understanding, Return Demonstration Time/GCodes Time In: 1150 Time Out: 1220 Total Billed Treatment Time: 30 Total Billed Treatment Visit, david LOTT JOHN A PT Sep 13, 2021 12:26
[2021-09-13 15:23] VITALS: BP 139/73
[2021-09-13] MEDS: SODIUM ACETATE IV SCH ×11 (16:55)
[2021-09-13] MEDS: SODIUM CHLORIDE IV SCH ×11 (16:55)
[2021-09-13] MEDS: [UNRECOGNIZED DRUG - OTHER] IV SCH ×11 (16:55)
[2021-09-13 19:26] VITALS: BP 147/68
[2021-09-13] MEDS: ALPRAZolam 1 MG (XANAX) TAB PO PRN (19:27)
[2021-09-13] MEDS: PROMETHAZINE INJ 25 MG/ML (PHENERGAN) AMP IV PRN (22:23)
[2021-09-14] VITALS: BP 138/77
[2021-09-14 04:06] VITALS: BP 150/95
[2021-09-14 05:05] LABS: CALCIUM 8.5 MG/DL (8.5-10.1)
[2021-09-14 05:07] LABS: TOTAL PROTEIN 5.3 GM/DL (6.4-8.2)
[2021-09-14 05:08] LABS: BILIRUBIN,TOTAL 0.2 MG/DL (0.1-1.0)
[2021-09-14 05:10] LABS: CREATININE SERUM 0.54 MG/DL (0.60-1.30); PHOSPHORUS 2.7 MG/DL (2.3-4.7)
[2021-09-14 05:13] LABS: MAGNESIUM 1.7 MG/DL (1.6-2.4)
[2021-09-14] MEDS: LACTATED RINGERS 1,000 ML IV SCH ×2 (05:22→17:10)
[2021-09-14] MEDS: PIPERACILLIN SODIUM/TAZOBACTAM 4.5 GM in NS (IVPB) 100 ML IV SCH ×2 (06:43→15:34)
[2021-09-14] MEDS: ONDANSETRON 4 MG/2 ML (SDV) Z0FRAN IV PRN ×2 (07:00→15:43)
[2021-09-14] MEDS: morphine INJ 4 MG/ML 1 ML (VIAL/SYRINGE) IV PRN ×4 (07:00→20:31)
--- NOTE | 2021-09-14 07:28 | Progress Note - Hospitalist ---
Subjective HPI/CC On Admission Date Seen by Provider: Sep 14, 2021 Time Seen by Provider: 12:00 Subjective/Events-last exam Patient about the same TPN maintain Replacing potassium Pain is about the same Anxiety is an issue We will order incentive spirometer Review of Systems General: Fatigue Gastrointestinal: Abdominal Pain Objective Exam Vital Signs Vital Signs Date Time Temp Pulse Resp B/P (MAP) Pulse Ox O2 Delivery O2 Flow Rate FiO2 09/14/21 15:23 37.4 68 17 113/56 (75) 94 Room Air 09/14/21 08:14 5.00 Capillary Refill : Less Than 3 Seconds General Appearance: WD/WN, Anxious, Chronically ill, Mild Distress, Thin Respiratory: Lungs Clear, Normal Breath Sounds Cardiovascular: Regular Rate, Rhythm Gastrointestinal: Tenderness Neurologic/Psychiatric: Alert, Oriented x3 Results/Procedures Lab Laboratory Tests 09/14/21 04:42 09/14/21 13:19 Patient resulted labs reviewed. Assessment/Plan Assessment and Plan Assess & Plan/Chief Complaint Assessment: Perforated ulcer Elevated liver enzymes Bowel obstruction TPN infusion Hypokalemia Anxiety Plan: TPN Pain control Supportive care 09/14/2021: TPN Replace potassium TESSA GRANADO DO Sep 14, 2021 07:28
[2021-09-14] MEDS: PANTOPRAZOLE 40 MG (PROTONIX) VIAL IV SCH ×2 (07:44→20:30)
[2021-09-14] MEDS: POTASSIUM CL 10MEQ/50ML IVPB 50 ML IV SCH ×5 (07:44→15:36)
[2021-09-14 08:14] VITALS: BP 171/79
[2021-09-14] MEDS: LORazepam INJ 2 MG/ML (ATIVAN) VIAL IVP PRN (10:36)
--- NOTE | 2021-09-14 11:29 | Progress Note - Surgery ---
LION PALMER 09/14/21 1129: Subjective Date Seen by a Provider: Sep 14, 2021 Time Seen by a Provider: 09:21 Subjective/Events-last exam pt is resting in bed and states that she feels like things are moving, she states she has had multiple loose BM's since yesterday, but also complains of constant band like epigastric pain and discomfort. She does not know if her BM's were bloody and denies nausea and vomiting since arrival. NGT remains in place and productive. Review of Systems General: No Chills, No Night Sweats; Malaise HEENT: No Head Aches, No Eye Pain, No Dysphasia Pulmonary: No Dyspnea, No Cough, No Pleuritic Chest Pain Cardiovascular: No: Chest Pain, Orthopnea, Edema Gastrointestinal: Abdominal Pain, Diarrhea; No: Vomiting, Constipation Genitourinary: No Dysuria, No Frequency, No Incontinence Musculoskeletal: No: neck pain, shoulder pain, back pain Neurological: No: Weakness, Numbness, Incoordination Objective Exam Vital Signs Date Time Temp Pulse Resp B/P (MAP) Pulse Ox O2 Delivery O2 Flow Rate FiO2 09/14/21 08:14 37.5 75 18 171/79 (109) 94 OxyMask 5.00 09/14/21 08:00 99 OxyMask 5.00 09/14/21 06:50 OxyMask 5.00 09/14/21 04:06 36.8 68 18 150/95 (113) 99 OxyMask 5.00 09/14/21 00:00 37.5 64 15 138/77 (97) 94 Room Air 09/13/21 20:09 OxyMask 5.00 09/13/21 19:26 37.5 76 18 147/68 (94) 93 Room Air 09/13/21 15:23 37.3 77 18 139/73 (95) 92 Room Air 09/13/21 12:01 37.0 70 16 112/66 (81) 95 Room Air I & O 09/14/21 07:00 Intake Total 390 ml Output Total 150 ml Balance 240 ml Capillary Refill : Less Than 3 Seconds General Appearance: Anxious, Chronically ill, Thin HEENT: PERRL/EOMI Neck: Full Range of Motion, Non Tender, Supple Respiratory: Chest Non Tender, Lungs Clear, Normal Breath Sounds, No Accessory Muscle Use, No Respiratory Distress Cardiovascular: Regular Rate, Rhythm, No Edema, No Gallop, No Murmur, Normal Peripheral Pulses Peripheral Pulses: 2+ Radial Pulses (R), 2+ Radial Pulses (L) Gastrointestinal: soft, no organomegaly, no pulsatile mass, tenderness (Epigastric area) Extremity: Normal Capillary Refill, Normal Range of Motion, Non Tender, No Calf Tenderness, No Pedal Edema Neurologic/Psychiatric: Alert, Oriented x3, No Motor/Sensory Deficits, Normal Mood/Affect Skin: Normal Color, Warm/Dry Lymphatic: No Adenopathy (cervical or axillary) Results Lab Laboratory Tests 09/13/21 13:34: Glucometer 92 09/14/21 04:42: Sodium Level 141, Potassium Level 3.0L, Chloride Level 102, Carbon Dioxide Level 28, Anion Gap 11, Blood Urea Nitrogen 19H, Creatinine 0.54L, Estimat Glomerular Filtration Rate 108, BUN/Creatinine Ratio 35, Glucose Level 127H, Calcium Level 8.5, Corrected Calcium 9.3, Phosphorus Level 2.7, Magnesium Level 1.7, Total Bilirubin 0.2, Aspartate Amino Transf (AST/SGOT) 32, Alanine Aminotransferase (ALT/SGPT) 68H, Alkaline Phosphatase 218H, Total Protein 5.3L, Albumin 3.0L Microbiology 09/11/21 Blood Culture - Preliminary, Resulted No growth Assessment/Plan Assessment/Plan Assessment/Plan Gastroparesis vs gastric outlet obstruction - possibly secondary PUD Gastric Perforation Dilated Biliary ducts - Bilirubin normal 0.5 Plan - IV PPI, Continue NGT decompression, Continue PICC and TPN, upper GI contrast study planned for next week, ok for ice chips. ROHIT ULLOA DO 09/14/21 1416: Subjective Time Seen by a Provider: 13:20 Subjective/Events-last exam Pt seen and examined, states her stomach pain is worse, but thinks this means things are "finally releasing". Review of Systems General: Malaise Pulmonary: No Dyspnea, No Cough Cardiovascular: No: Chest Pain, Orthopnea Gastrointestinal: Nausea, Abdominal Pain, Diarrhea; No: Vomiting Objective Exam General Appearance: Anxious, Chronically ill, Cachetic HEENT: PERRL/EOMI Respiratory: Lungs Clear, Normal Breath Sounds, No Accessory Muscle Use, No Respiratory Distress Cardiovascular: Regular Rate, Rhythm, No Murmur Gastrointestinal: soft, no organomegaly, tenderness (Epigastric area) Neurologic/Psychiatric: Alert, Oriented x3 Assessment/Plan Assessment/Plan Assessment/Plan Gastroparesis vs gastric outlet obstruction - possibly secondary PUD Gastric Perforation Dilated Biliary ducts - Bilirubin normal 0.5 Plan - IV PPI, Continue NGT decompression, Continue PICC and TPN, upper GI contrast study planned for next week, ok for ice chips. Supervisory-Addendum Brief Verification & Attestation Participated in pt care: history, MDM, physical Personally performed: exam, history, MDM, supervision of care Care discussed with: Medical Student Procedures: n/a Verification and Attestation of Medical Student E/M Service A medical student performed and documented this service. I then reviewed and verified all information documented by the medical student and made modifications to such information, when appropriate. I personally performed a physical exam, medical decision making and then discussed any differences between the notes and made revisions as necessary to create one note. Rohit Ulloa , 09/14/21 , 14:16 LION PALMER Sep 14, 2021 11:29 ROHIT ULLOA DO Sep 14, 2021 14:16
[2021-09-14] MEDS ORDERED: NITROGLYCERIN 2% OINT 1 GM UNIT DOSE PACKET TOP PRN (12:15)
[2021-09-14] MEDS: ENALAPRILAT 2.5 MG/2 ML (VASOTEC) VIAL IV SCH ×2 (13:38→17:10)
[2021-09-14 13:44] LABS: POTASSIUM 3.4 MMOL/L (3.6-5.0)
[2021-09-14 13:45] LABS: CALCIUM 8.8 MG/DL (8.5-10.1)
[2021-09-14 13:50] LABS: CREATININE SERUM 0.55 MG/DL (0.60-1.30)
[2021-09-14 15:23] VITALS: BP 113/56
[2021-09-14] MEDS ORDERED: DEXTROSE 50% 50 ML (IMS) SYR IV PRN (15:45)
[2021-09-14 17:08] VITALS: BP 102/50
[2021-09-14] MEDS: SODIUM CHLORIDE IV SCH ×11 (17:15)
[2021-09-14] MEDS: SODIUM ACETATE IV SCH ×11 (17:15)
[2021-09-14] MEDS: [UNRECOGNIZED DRUG - OTHER] IV SCH ×11 (17:15)
[2021-09-14 19:26] VITALS: BP 114/57
[2021-09-14] MEDS: PROMETHAZINE INJ 25 MG/ML (PHENERGAN) AMP IV PRN (22:59)
[2021-09-15] VITALS (9 sets, daily range): BP systolic 104–142; BP diastolic 52–79
[2021-09-15] MEDS: PIPERACILLIN SODIUM/TAZOBACTAM 4.5 GM in NS (IVPB) 100 ML IV SCH ×4 (00:59→22:58)
[2021-09-15] MEDS: ENALAPRILAT 2.5 MG/2 ML (VASOTEC) VIAL IV SCH ×5 (01:00→22:58)
[2021-09-15] MEDS: LORazepam INJ 2 MG/ML (ATIVAN) VIAL IVP PRN ×2 (02:01→19:38)
[2021-09-15] MEDS: morphine INJ 4 MG/ML 1 ML (VIAL/SYRINGE) IV PRN ×4 (02:01→19:30)
[2021-09-15] MEDS: LACTATED RINGERS 1,000 ML IV SCH ×3 (03:50→21:01)
[2021-09-15] MEDS: ONDANSETRON 4 MG/2 ML (SDV) Z0FRAN IV PRN ×3 (05:14→19:30)
[2021-09-15] MEDS: PANTOPRAZOLE 40 MG (PROTONIX) VIAL IV SCH ×2 (07:57→19:29)
[2021-09-15] MEDS: PROMETHAZINE INJ 25 MG/ML (PHENERGAN) AMP IV PRN ×3 (07:58→22:58)
--- NOTE | 2021-09-15 09:58 | Physical Therapy Daily Note ---
PT Daily Note-Current Subjective Patient continues to c/o abdominal pain. NG tube remains in place and attached. Mental Status Patient Orientation: Normal For Age Attachments: NG Tube, IV Transfers SCALE: Activities may be completed with or without assistive devices. 1-Lyasqhjbfr-pcrxeid completes the activity by him/herself with no assistance from a helper. 5-Set-up or Clean-up Assistance-helper sets up or cleans up; patient completes activity. [place] assists only prior to or following the activity. 4-Supervision or Touching Assistance-helper provides verbal cues and/or touching/steadying and/or contact guard assistance as patient completes activity. Assistance may be provided throughout the activity or intermittently. 3-Partial/Moderate Assistance-helper does LESS THAN HALF the effort. [place] lifts, holds or supports trunk or limbs, but provides less than half the effort. 2-Substantial/Maximal Assistance-helper does MORE THAN HALF the effort. [place] lifts or holds trunk or limbs and provides more than half the effort. 1-Dnznmfxtb-ifpszz does ALL the effort. Patient does none of the effort to complete the activity. Or, the assistance of 2 or more helpers is required for the patient to complete the activity. If activity was not attempted, code reason: 7-Patient Refused. 9-Not Applicable-not attempted and the patient did not perform the activity before the current illness, exacerbation or injury. 10-Not Attempted due to Environmental Limitations-(lack of equipment, weather restraints, etc.). 88-Not Attempted due to Medical Conditions or Safety Concerns. Lying to Sitting/Side of Bed(Q: 6 Sit to Stand (QC): 6 Chair/Kcs-fu-Zweti Xfer(QC): 6 Gait Training Does the Patient Walk?: Yes Distance: 300' Walk 10 feet (QC): 6 Walk 50 ft with 2 Turns(QC): 6 Walk 150 ft (QC): 6 Gait Assistive Device: None safe and functional with no deviation Assessment PT instructed patient and nursing for patient to be up PRN ambulating in hallway. Both voice understanding. Patient is currently at independent PLOF with all gross motor skills and does on require skilled PT intervention. PT [employer] Fabricator Goals Fdc Goals PT Tubular [employer] Fabricator Goals Time Frame: Oct 04, 2021 Roll Left & Right (QC): 6 Sit to Lying (QC): 6 Lying-Sitting on Side/Bed(QC): 6 Sit to Stand (QC): 6 Chair/Omd-ck-Hmxwd Xfer(QC): 6 Toilet Transfer (QC): 6 Does the Patient Walk: Yes Walk 10 feet (QC): 6 Walk 50ft with 2 Turns (QC): 6 Walk 150 ft (QC): 6 1 Step (curb) (QC): 6 4 Steps (QC): 6 PT Plan Treatment/Plan Treatment Plan: Discontinue PT, goals met Treatment Plan: Bed Mobility, Education, Functional Activity Teresa, Functional Strength, Group Therapy, Gait, Safety, Therapeutic Exercise, Transfers Treatment Duration: Nov 08, 2021 Frequency: 6 times per week Estimated Hrs Per Day: .25 hour per day Patient and/or Family Agrees t: Yes Time/GCodes Time In: 858 Time Out: 907 Total Billed Treatment Time: 9 Total Billed Treatment 1 visit FA 9 min DAYA ROGEL PT Sep 15, 2021 09:58
--- NOTE | 2021-09-15 10:13 | Progress Note - Hospitalist ---
Subjective HPI/CC On Admission Date Seen by Provider: Sep 15, 2021 Time Seen by Provider: 10:00 Subjective/Events-last exam Pt about the same Therapy did stand her and she is doing a little better from that end Liver is much improved TPN maintained Repeating labs to rule out electrolyte abnormalities Review of Systems General: Fatigue, Malaise Gastrointestinal: Nausea, Vomiting, Abdominal Pain Objective Exam Vital Signs Vital Signs Date Time Temp Pulse Resp B/P (MAP) Pulse Ox O2 Delivery O2 Flow Rate FiO2 09/16/21 05:00 37.4 59 18 116/65 (82) 94 Room Air 09/14/21 08:14 5.00 Capillary Refill : Less Than 3 Seconds General Appearance: WD/WN, Anxious, Chronically ill, Mild Distress, Thin Respiratory: Lungs Clear, Normal Breath Sounds Cardiovascular: Regular Rate, Rhythm Neurologic/Psychiatric: Alert, Oriented x3 Results/Procedures Lab Laboratory Tests 09/15/21 10:20 Patient resulted labs reviewed. Assessment/Plan Assessment and Plan Assess & Plan/Chief Complaint Assessment: Perforated ulcer Elevated liver enzymes Bowel obstruction TPN infusion Hypokalemia Anxiety Plan: TPN Pain control Supportive care 09/14/2021: TPN Replace potassium 09/15/2021: Supportive care TPN TESSA GRANADO DO Sep 15, 2021 10:13
--- NOTE | 2021-09-15 10:18 | Occupational Therapy Eval ---
OT Evaluation-General/PLF Medical Diagnosis Admission Date Sep 11, 2021 at 04:16 Medical Diagnosis: Abdominal pain Onset Date: Oct 06, 2021 Therapy Diagnosis Therapy Diagnosis: n/v Precautions Precautions/Isolations: Fall Prevention, Standard Precautions Referral Physician: Dr. Lamb Referral Reason: Evaluation/Treatment Medical History Current History Pt presents to ER with abdominal pain. Currently with NG tube. Pt reports she lives alone in a single story home. She was indep with all adls and iadls prior to admission. 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 Reviewed History: Yes Social History Home: Single Level Current Living Status: Alone Steps Into Home: 3 ADL-Prior Level of Function SCALE: Activities may be completed with or without assistive devices. 1-Abgdorwfxg-tmzqplg completes the activity by him/herself with no assistance from a helper. 5-Set-up or Clean-up Assistance-helper sets up or cleans up; patient completes activity. [place] assists only prior to or following the activity. 4-Supervision or Touching Assistance-helper provides verbal cues and/or touching/steadying and/or contact guard assistance as patient completes activity. Assistance may be provided throughout the activity or intermittently. 3-Partial/Moderate Assistance-helper does LESS THAN HALF the effort. [place] lifts, holds or supports trunk or limbs, but provides less than half the effort. 2-Substantial/Maximal Assistance-helper does MORE THAN HALF the effort. [place] lifts or holds trunk or limbs and provides more than half the effort. 6-Hlknaqdbp-numkyz does ALL the effort. Patient does none of the effort to complete the activity. Or, the assistance of 2 or more helpers is required for the patient to complete the activity. If activity was not attempted, code reason: 7-Patient Refused. 9-Not Applicable-not attempted and the patient did not perform the activity before the current illness, exacerbation or injury. 10-Not Attempted due to Environmental Limitations-(lack of equipment, weather restraints, etc.). 88-Not Attempted due to Medical Conditions or Safety Concerns. Self Care: Independent Functional Cognition: Independent DME/Equipment: Tub/Shower Drive Self: Yes OT Current Status Subjective Pt reports pain as 7/10 in abdomen. RN aware. Appearance Pt returned to sitting in recliner, all needs within reach. RN in room at OT departure. Mental Status/Objective Patient Orientation: Person, Place, Situation Attachments: IV, NG Tube Current Hearing Aids: No Dentures/Partials: No Hand Dominance: Right Upper Extremity ROM WFL Upper Extremity Strength 4/5 grossly ADL-Treatment Oral Hygiene (QC): 6 (per clinical judgment) Lower Body Dressing (QC): 5 On/Off Footwear (QC): 6 Toileting Hygiene (QC): 6 Pt sitting in chair at OT arrival. Able to don/doff bilateral socks without difficulty. She stood indep and ambulated to/from bathroom without AD. No unsteadiness observed. Pt denies need to perform toileting but able to demonstrate all steps without difficulty. Pt denies any concerns regarding self cares. No OT services warranted at this time. OT to discharge. Pt in agreement. Education OT Patient Education: Energy conservation, Purpose of tx/functional activities Teaching Recipient: Patient Teaching Methods: Discussion Response to Teaching: Verbalize Understanding OT Detention Goals Detention Goals 1=Demonstrate adherence to instructed precautions during ADL tasks. 2=Patient will verbalize/demonstrate understanding of assistive devices/modifications for ADL. 3=Patient will improve strength/tolerance for activity to enable patient to perform ADL's. OT Education/Plan Problem List/Assessment Assessment: No Skilled OT Needs ID'd Discharge Recommendations Plan/Recommendations: Discontinue OT Therapy Discharge Recommendati: Home & Family Treatment Plan/Plan of Care Treatment,Training & Education: Yes Patient would benefit from OT for education, treatment and training to promote independence in ADL's, mobility, safety and/or upper extremity function for ADL's. Plan of Care: ADL Retraining Treatment Duration: Sep 15, 2021 Frequency: 1 time per week Estimated Hrs Per Day: .25 hour per day Rehab Potential: Good Time/GCodes Start Time: 09:40 Stop Time: 09:50 Total Time Billed (hr/min): 10 Billed Treatment Time 1 visit Jessica Avendano OT Sep 15, 2021 10:18
[2021-09-15 11:09] LABS: CREATININE SERUM 0.54 MG/DL (0.60-1.30); POTASSIUM 3.2 MMOL/L (3.6-5.0)
[2021-09-15 11:10] LABS: BILIRUBIN,TOTAL 0.3 MG/DL (0.1-1.0); CALCIUM 8.6 MG/DL (8.5-10.1); MAGNESIUM 1.8 MG/DL (1.6-2.4); PHOSPHORUS 3.2 MG/DL (2.3-4.7); TOTAL PROTEIN 5.1 GM/DL (6.4-8.2)
[2021-09-15] MEDS: fentaNYL INJ 100 MCG/2 ML AMP IVP PRN (11:44)
[2021-09-15] MEDS: POTASSIUM CL 10MEQ/50ML IVPB 50 ML IV SCH ×4 (12:45→16:01)
[2021-09-15] MEDS ORDERED: [UNRECOGNIZED DRUG - OTHER] IV SCH ×11 (17:00)
[2021-09-15] MEDS ORDERED: SODIUM CHLORIDE IV SCH ×11 (17:00)
[2021-09-15] MEDS ORDERED: SODIUM ACETATE IV SCH ×11 (17:00)
--- NOTE | 2021-09-15 17:12 | Progress Note ---
Subjective Date Seen by a Provider: Sep 15, 2021 Time Seen by a Provider: 17:00 Subjective/Events-last exam doing ok. still has some abd pain and nausea. has had BM. Objective Exam Vital Signs Date Time Temp Pulse Resp B/P (MAP) Pulse Ox O2 Delivery O2 Flow Rate FiO2 09/15/21 16:54 36.6 64 20 141/68 (92) 96 Room Air 09/15/21 11:34 37.4 68 18 138/78 (98) 100 Room Air 09/15/21 08:00 100 Room Air 09/15/21 07:31 37.4 71 18 136/79 (98) 93 Room Air 09/15/21 05:17 62 107/52 (70) 09/15/21 04:00 36.9 65 16 115/55 (75) 91 Room Air 09/15/21 00:59 60 104/52 (69) 09/15/21 00:03 37.0 65 18 112/56 (74) 93 Room Air 09/14/21 20:00 93 Room Air 09/14/21 19:26 37.2 66 20 114/57 (76) 95 Room Air I & O 09/15/21 07:00 Intake Total 370 ml Output Total 850 ml Balance -480 ml Capillary Refill : Less Than 3 Seconds General Appearance: No Apparent Distress HEENT: PERRL/EOMI Neck: Full Range of Motion Respiratory: Chest Non Tender, Wheezing Cardiovascular: Regular Rate, Rhythm Gastrointestinal: soft, tenderness Extremity: Normal Capillary Refill Neurologic/Psychiatric: Alert, Oriented x3 Skin: Normal Color Lymphatic: No Adenopathy Results Lab Laboratory Tests 09/15/21 09:51: Glucometer 139H 09/15/21 10:20: Sodium Level 141, Potassium Level 3.2L, Chloride Level 106, Carbon Dioxide Level 25, Anion Gap 10, Blood Urea Nitrogen 18, Creatinine 0.54L, Estimat Glomerular Filtration Rate 108, BUN/Creatinine Ratio 33, Glucose Level 146H, Calcium Level 8.6, Corrected Calcium 9.4, Phosphorus Level 3.2, Magnesium Level 1.8, Total Bilirubin 0.3, Aspartate Amino Transf (AST/SGOT) 16, Alanine Aminotransferase (ALT/SGPT) 42, Alkaline Phosphatase 200H, Total Protein 5.1L, Albumin 3.0L 09/15/21 11:28: Glucometer 149H 09/15/21 16:57: Glucometer 122H Microbiology 09/11/21 Blood Culture - Preliminary, Resulted No growth Assessment/Plan Assessment/Plan Assess & Plan/Chief Complaint gastric outlet obstruction secondary PUD. IV PPI. NGT decompression. PICC and TPN. upper GI contrast study tomorrow. ok for ice chips. JOCELYN DÍAZ MD Sep 15, 2021 17:12
[2021-09-16] MEDS: ONDANSETRON 4 MG/2 ML (SDV) Z0FRAN IV PRN ×3 (03:19→17:15)
[2021-09-16] MEDS: morphine INJ 4 MG/ML 1 ML (VIAL/SYRINGE) IV PRN ×5 (03:19→23:30)
[2021-09-16 05:00] VITALS: BP 116/65
[2021-09-16] MEDS: ENALAPRILAT 2.5 MG/2 ML (VASOTEC) VIAL IV SCH (05:09)
[2021-09-16 05:48] LABS: ALBUMIN 3.1 GM/DL (3.2-4.5); POTASSIUM 3.6 MMOL/L (3.6-5.0)
[2021-09-16 05:49] LABS: CALCIUM 8.8 MG/DL (8.5-10.1)
[2021-09-16 05:50] LABS: TOTAL PROTEIN 5.5 GM/DL (6.4-8.2)
[2021-09-16 05:52] LABS: BILIRUBIN,TOTAL 0.2 MG/DL (0.1-1.0)
[2021-09-16 05:54] LABS: CREATININE SERUM 0.54 MG/DL (0.60-1.30); PHOSPHORUS 3.5 MG/DL (2.3-4.7)
[2021-09-16 05:57] LABS: MAGNESIUM 1.8 MG/DL (1.6-2.4)
--- NOTE | 2021-09-16 06:16 | Progress Note - Hospitalist ---
Subjective HPI/CC On Admission Date Seen by Provider: Sep 16, 2021 Time Seen by Provider: 09:30 Subjective/Events-last exam Pt doing a little better Will d/c Enalapril IV because her bp is normal and she was complaining a great deal about it Labs improved Liver enzymes improved Review of Systems General: Fatigue, Malaise Gastrointestinal: Abdominal Pain Objective Exam Vital Signs Vital Signs Date Time Temp Pulse Resp B/P (MAP) Pulse Ox O2 Delivery O2 Flow Rate FiO2 09/17/21 03:56 36.8 66 20 144/65 (91) 100 Room Air 09/14/21 08:14 5.00 Capillary Refill : Less Than 3 Seconds General Appearance: No Apparent Distress, WD/WN, Chronically ill Respiratory: Lungs Clear, Normal Breath Sounds Cardiovascular: Regular Rate, Rhythm Neurologic/Psychiatric: Alert, Oriented x3 Results/Procedures Lab Patient resulted labs reviewed. Assessment/Plan Assessment and Plan Assess & Plan/Chief Complaint Assessment: Perforated ulcer Elevated liver enzymes Bowel obstruction TPN infusion Hypokalemia Anxiety Plan: TPN Pain control Supportive care 09/14/2021: TPN Replace potassium 09/15/2021: Supportive care TPN 09/16/2021: Supportive care TESSA GRANADO DO Sep 16, 2021 06:16
[2021-09-16] MEDS: PROMETHAZINE INJ 25 MG/ML (PHENERGAN) AMP IV PRN ×3 (06:55→23:30)
[2021-09-16 07:35] VITALS: BP 109/63
[2021-09-16] MEDS: PANTOPRAZOLE 40 MG (PROTONIX) VIAL IV SCH ×2 (08:00→20:01)
[2021-09-16] MEDS: LACTATED RINGERS 1,000 ML IV SCH ×2 (08:30→18:18)
[2021-09-16] MEDS ORDERED: ENALAPRILAT 2.5 MG/2 ML (VASOTEC) VIAL IV PRN (10:00)
[2021-09-16 11:18] VITALS: BP 130/59
--- NOTE | 2021-09-16 13:57 | Progress Note ---
Subjective Date Seen by a Provider: Sep 16, 2021 Time Seen by a Provider: 12:00 Subjective/Events-last exam doing ok. having BM's. still has significant NGT output however does take in a lot of ice chips. Objective Exam Vital Signs Date Time Temp Pulse Resp B/P (MAP) Pulse Ox O2 Delivery O2 Flow Rate FiO2 09/16/21 11:18 36.8 64 18 130/59 (82) 98 Room Air 09/16/21 08:00 98 Room Air 09/16/21 07:35 37.0 61 18 109/63 (78) 98 Room Air 09/16/21 05:00 37.4 59 18 116/65 (82) 94 Room Air 09/15/21 23:06 37.5 61 22 137/64 (88) 96 Room Air 09/15/21 19:25 Room Air 09/15/21 19:19 37.6 67 22 142/66 (91) 95 Room Air 09/15/21 16:54 36.6 64 20 141/68 (92) 96 Room Air I & O 09/16/21 07:00 Intake Total 2349 ml Output Total 1850 ml Balance 499 ml Capillary Refill : Less Than 3 Seconds General Appearance: No Apparent Distress HEENT: PERRL/EOMI Neck: Full Range of Motion Respiratory: Chest Non Tender, Wheezing Cardiovascular: Regular Rate, Rhythm Gastrointestinal: normal bowel sounds, soft, tenderness Extremity: Normal Capillary Refill Neurologic/Psychiatric: Alert, Oriented x3 Skin: Normal Color Lymphatic: No Adenopathy Results Lab Laboratory Tests 09/15/21 16:57: Glucometer 122H 09/16/21 05:35: Sodium Level 143, Potassium Level 3.6, Chloride Level 107, Carbon Dioxide Level 27, Anion Gap 9, Blood Urea Nitrogen 17, Creatinine 0.54L, Estimat Glomerular Filtration Rate 108, BUN/Creatinine Ratio 31, Glucose Level 134H, Calcium Level 8.8, Corrected Calcium 9.5, Phosphorus Level 3.5, Magnesium Level 1.8, Total Bilirubin 0.2, Aspartate Amino Transf (AST/SGOT) 16, Alanine Aminotransferase (ALT/SGPT) 35, Alkaline Phosphatase 180H, Total Protein 5.5L, Albumin 3.1L 09/16/21 13:20: Glucometer 122H Microbiology 09/11/21 Blood Culture - Preliminary, Resulted No growth Assessment/Plan Assessment/Plan Assess & Plan/Chief Complaint gastric outlet obstruction secondary PUD. IV PPI. NGT decompression. PICC and TPN. upper GI contrast study today. ok for ice chips. JOCELYN DÍAZ MD Sep 16, 2021 13:57
[2021-09-16] MEDS: fentaNYL INJ 100 MCG/2 ML AMP IVP PRN ×2 (14:11→17:16)
[2021-09-16] MEDS ORDERED: DIATRIZOATE MEGLUM/SODIUM 37% 120 ML (GASTROGRAFIN) NG ONE (15:15)
[2021-09-16 16:17] VITALS: BP 130/80
[2021-09-16] MEDS: LORazepam INJ 2 MG/ML (ATIVAN) VIAL IVP PRN (17:15)
[2021-09-16] MEDS: SODIUM CHLORIDE IV SCH ×10 (17:16)
[2021-09-16] MEDS: [UNRECOGNIZED DRUG - OTHER] IV SCH ×10 (17:16)
[2021-09-16] MEDS: POTASSIUM CHLORIDE IV SCH ×10 (17:16)
--- NOTE | 2021-09-16 18:57 | Diagnostic Imaging Report ---
Gastric outlet obstruction Pot[place] Peeler radiograph of the abdomen reveals nasogastric tube reaching the mid stomach. Surgical clips are seen in the region of the gallbladder fossa. Ovoid radiopacities in the left midabdomen may represent recently ingested tablets. 120 mL of diluted Gastrografin were injected via the indwelling nasogastric tube. Overhead images reveal opacification of the distended gastric lumen. Contrast reaches the pylorus which demonstrates mucosal irregularity. There does appear to be partial opacification of the duodenal bulb. Overhead images were then obtained approximately 1 hour after ingestion of contrast and contrast is retained within the stomach without significant small bowel opacification. IMPRESSION: Findings are most consistent with high-grade gastric outlet obstruction at the gastroduodenal junction. This may be due to significant mucosal inflammation and clinical correlation is recommended. The stomach is at least moderately distended and dilated. Dictated by: Dictated on workstation # [id number]
[2021-09-16 19:49] VITALS: BP 155/77
[2021-09-17] VITALS (8 sets, daily range): BP systolic 119–176; BP diastolic 55–82
[2021-09-17] MEDS: morphine INJ 4 MG/ML 1 ML (VIAL/SYRINGE) IV PRN ×5 (02:53→18:17)
[2021-09-17] MEDS: ONDANSETRON 4 MG/2 ML (SDV) Z0FRAN IV PRN ×2 (02:53→18:16)
[2021-09-17] MEDS: LACTATED RINGERS 1,000 ML IV SCH ×2 (04:39→18:50)
[2021-09-17 06:23] LABS: ALBUMIN 3.2 GM/DL (3.2-4.5); POTASSIUM 3.8 MMOL/L (3.6-5.0)
[2021-09-17 06:25] LABS: TOTAL PROTEIN 5.8 GM/DL (6.4-8.2)
[2021-09-17 06:27] LABS: BILIRUBIN,TOTAL 0.2 MG/DL (0.1-1.0)
[2021-09-17 06:28] LABS: PHOSPHORUS 3.6 MG/DL (2.3-4.7)
[2021-09-17 06:29] LABS: CREATININE SERUM 0.51 MG/DL (0.60-1.30)
[2021-09-17 06:32] LABS: MAGNESIUM 1.8 MG/DL (1.6-2.4)
[2021-09-17] MEDS: PANTOPRAZOLE 40 MG (PROTONIX) VIAL IV SCH (07:51)
[2021-09-17] MEDS: PROMETHAZINE INJ 25 MG/ML (PHENERGAN) AMP IV PRN ×3 (07:58→20:22)
[2021-09-17] MEDS: LORazepam INJ 2 MG/ML (ATIVAN) VIAL IVP PRN (08:00)
--- NOTE | 2021-09-17 11:31 | Progress Note - Hospitalist ---
Subjective HPI/CC On Admission Date Seen by Provider: Sep 17, 2021 Time Seen by Provider: 11:00 Subjective/Events-last exam Pt doing about the same Complaining of left ear pain when she had a coughing episode with a pill Will try to find an Otoscope before tomorrow and check it out Pt has no other issues Constantly asking for Benzodiazepines and pain medications TPN still infusing Review of Systems General: Fatigue, Malaise Gastrointestinal: Abdominal Pain Objective Exam Vital Signs Vital Signs Date Time Temp Pulse Resp B/P (MAP) Pulse Ox O2 Delivery O2 Flow Rate FiO2 09/18/21 03:58 36.8 56 18 132/79 (96) 98 Room Air 09/14/21 08:14 5.00 Capillary Refill : Less Than 3 Seconds General Appearance: No Apparent Distress, WD/WN, Chronically ill Respiratory: Lungs Clear, Normal Breath Sounds Cardiovascular: Regular Rate, Rhythm Neurologic/Psychiatric: Alert, Oriented x3 Results/Procedures Lab Laboratory Tests 09/17/21 06:10 Patient resulted labs reviewed. Assessment/Plan Assessment and Plan Assess & Plan/Chief Complaint Assessment: Perforated ulcer Elevated liver enzymes Bowel obstruction TPN infusion Hypokalemia Anxiety Plan: TPN Pain control Supportive care 09/14/2021: TPN Replace potassium 09/15/2021: Supportive care TPN 09/16/2021: Supportive care 09/17/2021: Check left ear with otoscope tomorrow TESSA GRANADO DO Sep 17, 2021 11:31
--- NOTE | 2021-09-17 13:13 | Progress Note ---
Subjective Date Seen by a Provider: Sep 17, 2021 Time Seen by a Provider: 13:00 Subjective/Events-last exam high grade GOO on upper gi contrast study yesterday. mild abd pain. having bowel fxn. Objective Exam Vital Signs Date Time Temp Pulse Resp B/P (MAP) Pulse Ox O2 Delivery O2 Flow Rate FiO2 09/17/21 11:20 37.0 64 18 119/69 (86) 97 Room Air 09/17/21 09:00 Room Air 09/17/21 07:26 37.2 61 18 127/63 (84) 94 Room Air 09/17/21 03:56 36.8 66 20 144/65 (91) 100 Room Air 09/17/21 00:18 36.8 66 18 133/64 (87) 98 Room Air 09/16/21 20:00 Room Air 09/16/21 19:49 36.7 72 18 155/77 (103) 95 Room Air 09/16/21 16:17 36.4 62 18 130/80 (97) 95 Room Air I & O 09/17/21 06:59 Intake Total 2971.75 ml Output Total 1750 ml Balance 1221.75 ml Capillary Refill : Less Than 3 Seconds General Appearance: No Apparent Distress Neck: Full Range of Motion Respiratory: Chest Non Tender, Wheezing Cardiovascular: Regular Rate, Rhythm Gastrointestinal: normal bowel sounds, soft, tenderness Extremity: Normal Capillary Refill Neurologic/Psychiatric: Alert, Oriented x3 Skin: Normal Color Lymphatic: No Adenopathy Results Lab Laboratory Tests 09/16/21 13:20: Glucometer 122H 09/17/21 06:10: Sodium Level 142, Potassium Level 3.8, Chloride Level 106, Carbon Dioxide Level 26, Anion Gap 10, Blood Urea Nitrogen 18, Creatinine 0.51L, Estimat Glomerular Filtration Rate 109, BUN/Creatinine Ratio 35, Glucose Level 131H, Calcium Level 9.0, Corrected Calcium 9.6, Phosphorus Level 3.6, Magnesium Level 1.8, Total Bilirubin 0.2, Aspartate Amino Transf (AST/SGOT) 15, Alanine Aminotransferase (ALT/SGPT) 25, Alkaline Phosphatase 168H, Total Protein 5.8L, Albumin 3.2 Microbiology 09/11/21 Blood Culture - Final, Complete No growth Assessment/Plan Assessment/Plan Assess & Plan/Chief Complaint gastric outlet obstruction secondary PUD. IV PPI. change to gtt. NGT decompression. PICC and TPN. upper GI contrast study(09/16) consistent with high grade GOO ok for ice chips. JOCELYN DÍAZ MD Sep 17, 2021 13:13
[2021-09-17] MEDS: PANTOPRAZOLE INJECTION 200 MG in NS (IVPB) 100 ML IV SCH (14:08)
[2021-09-17] MEDS: POTASSIUM CHLORIDE IV SCH ×10 (16:59)
[2021-09-17] MEDS: SODIUM CHLORIDE IV SCH ×10 (16:59)
[2021-09-17] MEDS: [UNRECOGNIZED DRUG - OTHER] IV SCH ×10 (16:59)
[2021-09-18] MEDS: PROMETHAZINE INJ 25 MG/ML (PHENERGAN) AMP IV PRN ×2 (02:17→21:27)
[2021-09-18 03:58] VITALS: BP 132/79
[2021-09-18] MEDS: LORazepam INJ 2 MG/ML (ATIVAN) VIAL IVP PRN ×2 (05:21→14:00)
[2021-09-18 05:49] LABS: CALCIUM 8.8 MG/DL (8.5-10.1)
[2021-09-18 05:51] LABS: TOTAL PROTEIN 5.9 GM/DL (6.4-8.2)
[2021-09-18 05:52] LABS: BILIRUBIN,TOTAL 0.3 MG/DL (0.1-1.0)
[2021-09-18 05:54] LABS: CREATININE SERUM 0.7 MG/DL (0.60-1.30)
[2021-09-18 05:57] LABS: MAGNESIUM 1.9 MG/DL (1.6-2.4)
--- NOTE | 2021-09-18 06:18 | Progress Note - Hospitalist ---
Subjective HPI/CC On Admission Date Seen by Provider: Sep 18, 2021 Time Seen by Provider: 10:00 Subjective/Events-last exam Pt talked a long time about not knowing what the plan is Small bowel follow-through showed a gastric outlet obstruction from Peptic Ulcer Disease so she will need TPN and NPO status for long-term I checked her left ear with the Otoscope and no evidence of any perforation or infection [facility] transfer may be an option I conferred with Dr Layton Review of Systems General: Fatigue, Malaise Gastrointestinal: Nausea, Abdominal Pain Objective Exam Vital Signs Vital Signs Date Time Temp Pulse Resp B/P (MAP) Pulse Ox O2 Delivery O2 Flow Rate FiO2 09/19/21 03:52 37.0 70 18 137/72 (93) 97 Room Air 09/14/21 08:14 5.00 Capillary Refill : Less Than 3 Seconds General Appearance: No Apparent Distress, WD/WN, Chronically ill Respiratory: Lungs Clear, Normal Breath Sounds Cardiovascular: Regular Rate, Rhythm Neurologic/Psychiatric: Alert, Oriented x3 Results/Procedures Lab Laboratory Tests 09/18/21 05:27 Patient resulted labs reviewed. Assessment/Plan Assessment and Plan Assess & Plan/Chief Complaint Assessment: Perforated ulcer Elevated liver enzymes Bowel obstruction from PUD causing gastric outlet obstruction TPN infusion Hypokalemia Anxiety Plan: TPN Pain control Supportive care 09/14/2021: TPN Replace potassium 09/15/2021: Supportive care TPN 09/16/2021: Supportive care 09/17/2021: Check left ear with otoscope tomorrow 09/18/21: Left ear without abnl [facility] transfer? TPN NPO TESSA GRANADO DO Sep 18, 2021 06:18
[2021-09-18 06:30] LABS: POTASSIUM 4.1 MMOL/L (3.6-5.0)
[2021-09-18 06:42] LABS: PHOSPHORUS 3.7 MG/DL (2.3-4.7)
[2021-09-18 07:12] VITALS: BP 136/82
[2021-09-18] MEDS: LACTATED RINGERS 1,000 ML IV SCH ×3 (09:18→23:59)
[2021-09-18] MEDS: morphine INJ 4 MG/ML 1 ML (VIAL/SYRINGE) IV PRN ×3 (10:41→18:38)
[2021-09-18 12:00] VITALS: BP 134/74
[2021-09-18] MEDS: PANTOPRAZOLE INJECTION 200 MG in NS (IVPB) 100 ML IV SCH (13:51)
[2021-09-18] MEDS: ONDANSETRON 4 MG/2 ML (SDV) Z0FRAN IV PRN ×2 (14:00→18:38)
--- NOTE | 2021-09-18 14:53 | Progress Note ---
Subjective Date Seen by a Provider: Sep 18, 2021 Time Seen by a Provider: 14:00 Subjective/Events-last exam doing ok. no change ngt output/abd pain. VSS, afebrile Objective Exam Vital Signs Date Time Temp Pulse Resp B/P (MAP) Pulse Ox O2 Delivery O2 Flow Rate FiO2 09/18/21 08:00 Room Air 09/18/21 07:12 36.4 115 18 136/82 (100) 95 Room Air 09/18/21 03:58 36.8 56 18 132/79 (96) 98 Room Air 09/17/21 23:53 36.8 62 18 135/81 (99) 98 Room Air 09/17/21 20:50 Room Air 09/17/21 20:40 72 156/78 (104) 09/17/21 20:29 37.0 77 19 176/82 (113) 99 Room Air 09/17/21 15:54 37.0 61 19 126/55 (78) 96 Room Air I & O 09/18/21 07:00 Intake Total 345 ml Output Total 2500 ml Balance -2155 ml Capillary Refill : Less Than 3 Seconds General Appearance: No Apparent Distress HEENT: PERRL/EOMI Neck: Full Range of Motion Respiratory: Chest Non Tender, Wheezing Cardiovascular: Regular Rate, Rhythm Gastrointestinal: normal bowel sounds, soft, tenderness Extremity: Normal Capillary Refill Neurologic/Psychiatric: Alert, Oriented x3 Skin: Normal Color Lymphatic: No Adenopathy Results Lab Laboratory Tests 09/18/21 05:27: Sodium Level 135, Potassium Level 4.1, Chloride Level 105, Carbon Dioxide Level 22, Anion Gap 8, Blood Urea Nitrogen 17, Creatinine 0.70, Estimat Glomerular Filtration Rate 101, BUN/Creatinine Ratio 24, Glucose Level 106H, Calcium Level 8.8, Corrected Calcium 9.6, Phosphorus Level 3.7, Magnesium Level 1.9, Total Bilirubin 0.3, Aspartate Amino Transf (AST/SGOT) 20, Alanine Aminotransferase (ALT/SGPT) 27, Alkaline Phosphatase 145H, Total Protein 5.9L, Albumin 3.0L 09/18/21 05:35: Glucometer 131H Microbiology 09/11/21 Blood Culture - Final, Complete No growth Assessment/Plan Assessment/Plan Assess & Plan/Chief Complaint gastric outlet obstruction secondary PUD. IV PPI. change to gtt. NGT decompression. PICC and TPN. upper GI contrast study(09/16) consistent with high grade GOO ok for ice chips. will need continuation of above plan and repeat UGI contrast study next week. there is a surgical option which would entail an antrectomy/vagotomy/bilroth 1 or 2 reconstruction however morbidity and mortality high and would need to be done at a tertiary center. JOCELYN DÍAZ MD Sep 18, 2021 14:53
[2021-09-18 16:00] VITALS: BP 130/60
[2021-09-18] MEDS: SODIUM CHLORIDE IV SCH ×11 (17:46)
[2021-09-18] MEDS: SODIUM ACETATE IV SCH ×11 (17:46)
[2021-09-18] MEDS: [UNRECOGNIZED DRUG - OTHER] IV SCH ×11 (17:46)
[2021-09-18 19:40] VITALS: BP 122/64
[2021-09-18 23:55] VITALS: BP 130/60
[2021-09-19 03:52] VITALS: BP 137/72
[2021-09-19 05:25] LABS: HEMATOCRIT 32 % (35-52); HEMOGLOBIN 10.2 g/dL (11.5-16.0); MEAN CORPUSCULAR HEMOGLOBIN 30 pg (25-34); MEAN CORPUSCULAR HGB CONC 32 g/dL (32-36); MEAN CORPUSCULAR VOLUME 92 fL (80-99); MEAN PLATELET VOLUME 12.5 fL (9.0-12.2); PLATELET COUNT 238 10^3/uL (130-400); WHITE BLOOD COUNT 9.3 10^3/uL (4.3-11.0)
[2021-09-19 05:31] LABS: ALBUMIN 3.2 GM/DL (3.2-4.5); POTASSIUM 4.1 MMOL/L (3.6-5.0)
[2021-09-19 05:32] LABS: CALCIUM 8.9 MG/DL (8.5-10.1)
[2021-09-19 05:34] LABS: TOTAL PROTEIN 5.8 GM/DL (6.4-8.2)
[2021-09-19 05:35] LABS: BILIRUBIN,TOTAL 0.3 MG/DL (0.1-1.0)
[2021-09-19 05:37] LABS: CREATININE SERUM 0.55 MG/DL (0.60-1.30); PHOSPHORUS 4.1 MG/DL (2.3-4.7)
[2021-09-19 05:40] LABS: MAGNESIUM 1.8 MG/DL (1.6-2.4)
--- NOTE | 2021-09-19 06:30 | Progress Note - Hospitalist ---
Subjective HPI/CC On Admission Date Seen by Provider: Sep 19, 2021 Objective Exam Vital Signs Vital Signs Date Time Temp Pulse Resp B/P (MAP) Pulse Ox O2 Delivery O2 Flow Rate FiO2 09/19/21 19:54 37.1 84 18 136/92 (107) 96 Room Air 09/14/21 08:14 5.00 Capillary Refill : Less Than 3 Seconds Results/Procedures Lab Patient resulted labs reviewed. Assessment/Plan Assessment and Plan Assess & Plan/Chief Complaint Assessment: Perforated ulcer Elevated liver enzymes Bowel obstruction from PUD causing gastric outlet obstruction TPN infusion Hypokalemia Anxiety Plan: TPN Pain control Supportive care 09/14/2021: TPN Replace potassium 09/15/2021: Supportive care TPN 09/16/2021: Supportive care 09/17/2021: Check left ear with otoscope tomorrow 09/18/21: Left ear without abnl [facility] transfer? TPN NPO TESSA GRANADO DO Sep 19, 2021 06:30
[2021-09-19 07:10] VITALS: BP 135/60
[2021-09-19 11:20] VITALS: BP 103/72
[2021-09-19] MEDS: ONDANSETRON 4 MG/2 ML (SDV) Z0FRAN IV PRN ×2 (12:00→18:26)
[2021-09-19] MEDS: morphine INJ 4 MG/ML 1 ML (VIAL/SYRINGE) IV PRN ×2 (12:00→18:26)
[2021-09-19] MEDS: LORazepam INJ 2 MG/ML (ATIVAN) VIAL IVP PRN ×2 (12:00→19:25)
--- NOTE | 2021-09-19 12:00 | Progress Note ---
Standard Progress Note Progress Notes/Assess & Plan Date Seen by a Provider: Sep 19, 2021 Time Seen by a Provider: 11:30 Progress/Assessment & Plan patient very agitated and inappropriate to staff and physicians. does not agree with management. she wants to have ngt removed and eat however has documented evidence of continued GOO on upper GI contrast study this week. patient wants second opiniion as well as possible transfer which we will facilitate with SS if she makes the decision. JOCELYN DÍAZ MD Sep 19, 2021 12:00
[2021-09-19] MEDS: LACTATED RINGERS 1,000 ML IV SCH (12:34)
[2021-09-19] MEDS: PANTOPRAZOLE INJECTION 200 MG in NS (IVPB) 100 ML IV SCH (14:29)
[2021-09-19 16:30] VITALS: BP 158/71
[2021-09-19] MEDS: [UNRECOGNIZED DRUG - OTHER] IV SCH ×11 (17:30)
[2021-09-19] MEDS: SODIUM ACETATE IV SCH ×11 (17:30)
[2021-09-19] MEDS: SODIUM CHLORIDE IV SCH ×11 (17:30)
--- NOTE | 2021-09-19 18:00 | Discharge Summary ---
Discharge Summary Hospital Course Was the Problem List Reviewed?: Yes Problems/Dx: (1) Complete gastric outlet obstruction (2) Peptic ulcer disease (3) On total parenteral nutrition (TPN) (4) Nothing allowed by mouth (5) Malnutrition Hospital Course Date of Admission: Sep 11, 2021 at 04:16 Admission Diagnosis : Family Physician/Provider: Edmund Salvador DO Date of Discharge: 09/19/21 Discharge Diagnosis: Gastric outlet obstruction, severe peptic ulcer disease, TPN, n.p.o., malnutrition Hospital Course: Patient had an uneventful but lengthy hospital course after she was admitted for severe abdominal pain and elevated liver enzymes and found to have severe gastric outlet obstruction confirmed on small bowel follow-through. She was placed on TPN and n.p.o. status. She was placed on proton pump inhibitor infusion. Decision was made for second opinion gastroenterology management so she was transferred to [facility]. Labs and Pending Lab Test: Laboratory Tests 09/19/21 05:10: White Blood Count 9.3, Red Blood Count 3.42L, Hemoglobin 10.2L, Hematocrit 32L, Mean Corpuscular Volume 92, Mean Corpuscular Hemoglobin 30, Mean Corpuscular Hemoglobin Concent 32, Red Cell Distribution Width 13.2, Platelet Count 238, Mean Platelet Volume 12.5H, Sodium Level 137, Potassium Level 4.1, Chloride Level 103, Carbon Dioxide Level 23, Anion Gap 11, Blood Urea Nitrogen 17, Creatinine 0.55L, Estimat Glomerular Filtration Rate 108, BUN/Creatinine Ratio 31, Glucose Level 110H, Calcium Level 8.9, Corrected Calcium 9.5, Phosphorus Level 4.1, Magnesium Level 1.8, Total Bilirubin 0.3, Aspartate Amino Transf (AST/SGOT) 16, Alanine Aminotransferase (ALT/SGPT) 27, Alkaline Phosphatase 143H , Total Protein 5.8L, Albumin 3.2, Prealbumin [Pending], Triglycerides Level 106 09/19/21 05:23: Glucometer 121H Microbiology 09/11/21 Blood Culture - Final, Complete No growth Home Meds Active Reported Hiqaquo-[id number] Tablet (Calcium Carbonate/Mag Oxide/Zn) 1 Each Tablet 1 Each PO DAILY Vitamin B Complex 1 Each Tablet 1 Each PO DAILY Zinc (Zinc Sulfate) 50 Mg Tablet 50 Mg PO DAILY Vitamin D3 (Cholecalciferol (Vitamin D3)) 25 Mcg Tablet 25 Mcg PO DAILY Vitamin E (Vitamin E Mixed) 100 Unit Tablet 100 Unit PO DAILY Multivitamin 1 Each Tablet 1 Each PO DAILY Magnesium (Magnesium Oxide) 400 Mg Tablet 400 Mg PO DAILY Potassium Chloride 20 Meq Tablet.er 20 Meq PO DAILY Alprazolam 1 Mg Tablet 1 Mg PO BID Aciphex (Rabeprazole Sodium) 20 Mg Tablet.dr 20 Mg PO BID Assessment/Pt Instructions Transferred to [facility] Discharge Planning: <30 minutes discharge planning Discharge Instructions Discharge Diet: Other Diet (N.p.o.) Discharge Physical Examination Vital Signs Vital Signs Date Time Temp Pulse Resp B/P (MAP) Pulse Ox O2 Delivery O2 Flow Rate FiO2 09/19/21 16:30 36.2 74 16 158/71 (100) 99 Room Air 09/14/21 08:14 5.00 General Appearance: No Apparent Distress, WD/WN, Chronically ill, Thin Allergies: Coded Allergies: Influenza Virus Vaccines (Verified Allergy, Unknown, 09/11/21) Discharge Summary Date of Admission Sep 11, 2021 at 04:16 Date of Discharge Discharge Date: Sep 19, 2021 Discharge Diagnosis Assessment: Perforated ulcer Elevated liver enzymes Bowel obstruction from PUD causing gastric outlet obstruction TPN infusion Hypokalemia Anxiety Plan: TPN Pain control Supportive care 09/14/2021: TPN Replace potassium 09/15/2021: Supportive care TPN 09/16/2021: Supportive care 09/17/2021: Check left ear with otoscope tomorrow 09/18/21: Left ear without abnl [facility] transfer? TPN NPO TESSA GRANADO DO Sep 19, 2021 18:00
[2021-09-19 19:54] VITALS: BP 136/92
== END 2021-09-19 19:30 | disposition short-term general hospital (02) | DRG 380 ==
LOC: ER 00:40 → 4TH 04:16 → EDLOC 04:16 → 4TH 09-18 12:56
PROVIDERS: ADMIT Family Medicine; ATTEND Internal Medicine
PROC: 0D9670Z Drainage of Stomach with Drainage Device, Via Natural or Artificial Opening (ICD-10-PCS; principal; 2021-09-12)
DX: K31.1 Adult hypertrophic pyloric stenosis (principal); K25.6 Chronic or unspecified gastric ulcer with both hemorrhage and perforation; E46 Unspecified protein-calorie malnutrition; Z68.1 Body mass index [BMI] 19.9 or less, adult; E87.6 Hypokalemia; F41.9 Anxiety disorder, unspecified; K21.9 Gastro-esophageal reflux disease without esophagitis; F17.210 Nicotine dependence, cigarettes, uncomplicated; R31.21 Asymptomatic microscopic hematuria; E86.0 Dehydration; E83.42 Hypomagnesemia
CPT/HCPCS: 36415; 36569; 71045; 74177; 74246; 76937; 80048; 80053; 81000; 82271; 82668; 82947; 83605; 83690; 83735; 84100; 84134; 84478; 85007; 85025; 85027; 85610; 85730; 86850; 86900; 86901; 86920; 87040; 93306; 94664; 96361; 96374; 96375; 96376

== ENCOUNTER 2022-07-08 10:28 | Outpatient (CLI) | payer BC ==
[~2022-07-08] VITALS: Ht 160 cm; Wt 50.0 kg
[~2022-07-08 10:28] MED LIST: ALPR0.25 PO; ALPR1TAB7 PO; CALC-687 PO; CHOL-34 PO; MAGN400T39 PO; MULT-1136 PO; NF-ACI30T PO; POTA-51 PO; VITA100T8 PO; VITA1TAB17 PO; ZINC220T3 PO
[2022-07-14] MEDS ORDERED: FERR-84 PO (11:48)
[2022-07-14] MEDS ORDERED: OMEG1CAP58 PO (11:48)
== END 2022-07-14 11:57 | disposition home or self-care (01) ==
LOC: PREOP 10:28
PROVIDERS: ATTEND Specialist
DX: Z01.818 Encounter for other preprocedural examination (principal); H25.89 Other age-related cataract

== ENCOUNTER 2022-07-17 10:18 | Day surgery (SDC) | payer BC, MEDICAID ==
[~2022-07-17] VITALS: Ht 161 cm; Wt 50.0 kg
[~2022-07-17 10:18] MED LIST changes: +FERR-84 PO; +OMEG1CAP58 PO
[2022-07-17] MEDS: TETRACAINE 0.5% OPHTH SOLN 4 ML BTL (SINGLE DOSE ONLY) OU PRN ×4 (10:40→10:56)
[2022-07-17] MEDS ORDERED: TIMOLOL 0.5% (CATARACTS) 0.3 ML BTL OU PRN (10:45)
[2022-07-17] MEDS ORDERED: MOXIFLOXACIN OPHTH SOLN 5 MG/ML 0.3 ML SYRINGE OP ONE (10:45)
[2022-07-17] MEDS: PHENYLEPHRINE 10% OPHTH (NEO-SYN) 5 ML BTL OU SCH ×3 (10:45→10:57)
[2022-07-17] MEDS ORDERED: POVIDONE (BETADINE) OPHTH SOLN 5% 30 ML OP ONE (10:45)
[2022-07-17] MEDS: TROPICAMIDE 1% OPH SOLN (MYDRIACYL) 15 ML BTL OP SCH ×3 (10:46→10:57)
[2022-07-17 10:48] VITALS: BP 133/97
[2022-07-17] MEDS ORDERED: MIDAZOLAM 2 MG/2 ML (VERSED) VIAL ONE (11:16)
--- NOTE | 2022-07-17 11:21 | Ophthalmologist Pre-Op Note ---
Pre-Operative Progress Note H&P Reviewed The H&P was reviewed, patient examined and no changes noted. Date H&P Reviewed: Jul 17, 2022 Time H&P Reviewed: 11:21 Pre-Op Dx Cataract, Right Eye CORBIN KING MD Jul 17, 2022 11:21
--- NOTE | 2022-07-17 11:44 | Ophthalmology Operative Report ---
Cataract removal/placement IOL PREOPERATIVE DIAGNOSIS: Cataract Right Eye POSTOPERATIVE DIAGNOSIS: Cataract Right Eye PROCEDURE: Cataract removal and placement of posterior chamber implant, right eye SURGEON: Victor Manuel King ANESTHESIA: Topical with sedation COMPLICATIONS: None ESTIMATED BLOOD LOSS: Minimal DESCRIPTION OF PROCEDURE: After proper informed consent was obtained, the patient, a 57 female, was taken to the Operating Room and the right eye was anesthetized with tetracaine. The right eye was then prepped and draped in the usual manner. A wire lid speculum was placed. A paracentesis was made at the left hand position. Preservative free lidocaine was injected into the anterior chamber followed by viscoelastic. A clear corneal incision was made in the temporal position. A capsulorrhexis was preformed and the central nuclear and cortical material were removed. The posterior capsule was polished and Troy 20.5 AU00T0 IOL was placed into the capsular bag. The residual viscoelastic was aspirated and balanced saline solution was injected into the anterior chamber. Moxifloxacin was injected into the anterior chamber. The wound was checked and found to be water tight. The patient tolerated the procedure well without complications. VICTOR MANUEL KING MD Jul 17, 2022 11:44
[2022-07-17 11:46] VITALS: BP 138/89
[2022-07-17] MEDS ORDERED: acetaZOLAMIDE ER 500 MG CAP (DIAMOX SEQUELS) PO ONE (12:15)
--- NOTE | 2022-07-17 14:05 | Anesthesia-General Post-Op ---
MAC Patient Condition Mental Status/LOC: Same as Preop Cardiovascular: Satisfactory Nausea/Vomiting: Absent Respiratory: Satisfactory Pain: Controlled Complications: Absent Post Op Complications Complications None Follow Up Care/Instructions Patient Instructions None needed. Anesthesiology Discharge Order Discharge Order Patient was doing well after the procedure with no complaints, stable vital signs, no apparent adverse anesthesia problems. No complications reported per nursing. TONIO MARTIN DO Jul 17, 2022 14:05
== END 2022-07-17 11:49 | disposition home or self-care (01) ==
LOC: SDC 10:18
PROVIDERS: ATTEND Specialist
DX: H25.9 Unspecified age-related cataract (principal)
CPT/HCPCS: 66984; V2632

== ENCOUNTER 2022-07-31 07:31 | Day surgery (SDC) | payer MEDICAID ==
[~2022-07-31] VITALS: Ht 160 cm; Wt 50.0 kg
[2022-07-31] MEDS: TETRACAINE 0.5% OPHTH SOLN 4 ML BTL (SINGLE DOSE ONLY) OU PRN ×4 (07:44→08:01)
[2022-07-31] MEDS ORDERED: MOXIFLOXACIN OPHTH SOLN 5 MG/ML 0.3 ML SYRINGE OP ONE (07:45)
[2022-07-31] MEDS ORDERED: POVIDONE (BETADINE) OPHTH SOLN 5% 30 ML OP ONE (07:45)
[2022-07-31] MEDS ORDERED: TIMOLOL 0.5% (CATARACTS) 0.3 ML BTL OU PRN (07:45)
[2022-07-31 07:46] VITALS: BP 143/92
[2022-07-31] MEDS: PHENYLEPHRINE 10% OPHTH (NEO-SYN) 5 ML BTL OU SCH ×3 (07:52→08:01)
[2022-07-31] MEDS: TROPICAMIDE 1% OPH SOLN (MYDRIACYL) 15 ML BTL OP SCH ×3 (07:52→08:01)
[2022-07-31] MEDS ORDERED: MIDAZOLAM 2 MG/2 ML (VERSED) VIAL ONE (08:18)
--- NOTE | 2022-07-31 08:36 | Ophthalmologist Pre-Op Note ---
Pre-Operative Progress Note H&P Reviewed The H&P was reviewed, patient examined and no changes noted. Date H&P Reviewed: Jul 31, 2022 Time H&P Reviewed: 08:36 Pre-Op Dx Cataract, Left Eye CORBIN KING MD Jul 31, 2022 08:36
--- NOTE | 2022-07-31 08:59 | Ophthalmology Operative Report ---
Cataract removal/placement IOL PREOPERATIVE DIAGNOSIS: Cataract Left Eye POSTOPERATIVE DIAGNOSIS: Cataract Left Eye PROCEDURE: Cataract removal and placement of posterior chamber implant, left eye SURGEON: VictorM anuel King ANESTHESIA: Topical with sedation COMPLICATIONS: None ESTIMATED BLOOD LOSS: Minimal DESCRIPTION OF PROCEDURE: After proper informed consent was obtained, the patient, a 57 female, was taken to the Operating Room and the left eye was anesthetized with tetracaine. The left eye was then prepped and draped in the usual manner. A wire lid speculum was placed. A paracentesis was made at the left hand position. Preservative free lidocaine was injected into the anterior chamber followed by viscoelastic. A clear corneal incision was made in the temporal position. A capsulorrhexis was preformed and the central nuclear and cortical material were removed. The posterior capsule was polished and an Troy 21.0 AU00T0 was placed into the capsular bag. The residual viscoelastic was aspirated and balanced saline solution was injected into the anterior chamber. Moxifloxacin was injected into the anterior chamber. The wound was checked and found to be water tight. The patient tolerated the procedure well without complications. VICTOR MANUEL KING MD Jul 31, 2022 08:59
[2022-07-31 09:02] VITALS: BP 143/98
[2022-07-31] MEDS ORDERED: acetaZOLAMIDE ER 500 MG CAP (DIAMOX SEQUELS) PO ONE (11:30)
--- NOTE | 2022-07-31 13:01 | Anesthesia-General Post-Op ---
MAC Patient Condition Mental Status/LOC: Same as Preop Cardiovascular: Satisfactory Nausea/Vomiting: Absent Respiratory: Satisfactory Pain: Controlled Complications: Absent Post Op Complications Complications None Follow Up Care/Instructions Patient Instructions None needed. Anesthesiology Discharge Order Discharge Order Patient is doing well, no complaints, stable vital signs, no apparent adverse anesthesia problems. No complications reported per nursing. CRYSTAL MUNSON CRNA Jul 31, 2022 13:01
== END 2022-07-31 09:08 | disposition home or self-care (01) ==
LOC: SDC 07:31
PROVIDERS: ATTEND Specialist
DX: H25.9 Unspecified age-related cataract (principal); F17.200 Nicotine dependence, unspecified, uncomplicated
CPT/HCPCS: 66984; V2632